=== PATIENT | male | born 1960 | race Caucasian/White ===

== ENCOUNTER 2021-02-10 19:00 | Emergency (ER) | payer BC, SELFPAY ==
[2021-02-10 19:14] VITALS: BP 106/66; PULSE 86; RESP 18; TEMP 37.1; O2SAT 96
--- NOTE | 2021-02-10 19:32 | ED.MALEGU ---
HPI - Male Genitourinary General Chief complaint: Urogenital-Male Stated complaint: UTI Source: patient and RN notes reviewed Limitations: no limitations History of Present Illness HPI Narrative: The patient, previously healthy on no meds, presents with dysuria. Patient states been seen by urology in the past for BPH. Now he has 1/2-week history of urinary dysuria, frequency similar to prior symptoms. No fever, blood, nocturia, low back pain; [id number], late day urinalysis noncontributory. Discussed possible causes of symptoms in view of lab results [obstruction, infection, etc.] and will treat broadly, and advised to go to hospital if not improved. Related Data Allergies Allergy/AdvReac Type Severity Reaction Status Date / Time No Known Allergies Allergy Mild Verified 02/10/21 19:24 Review of Systems Review of Systems: General/Constitutional: No weight loss,fever Eyes: N0: Redness,discharge Ears/Nose/Throat: No: Epistaxis,ear discharge Respiratory: Denies: Hemoptysis Gastrointestinal: No Vomiting, Bleeding-rectal Skin: No Lumps, eruption Neurologic: No Focal Weakness,Sz Hematologic: Denies: Petechiae/Purpura Psychiatric: No: Suicida ideationl All Other Systems: Reviewed and Negative [facility] Past Medical History Medical History Acute eczema Surgical History Surgical History H/O foot surgery Family History Family History Father Cancer Mother Supranuclear palsy Social History Social History Smoking status: Never smoker Comments At time of signature, agree with nursing past medical, surgical, social and family history. There is no relevant family history pertinent to the presenting complaint Exam Narrative: General Appearance: Well appearing, Conjunctiva clear Mouth/Throat: Normal appearing, Normal lips, Supple Respiratory: Airway patent, No respiratory distress Abdomen: Soft, Non-tender, No massess, No organomegaly Musculoskeletal: Full ROM Skin: Warm, Dry Neurological: A&O x3, CN II-X intact Psychiatric: Normal mood, Normal affect Course Vital Signs Vital signs: Vital Signs Temperature 98.8 F 02/10/21 19:14 Pulse Rate 86 02/10/21 19:14 Respiratory Rate 18 02/10/21 19:14 Blood Pressure 106/66 02/10/21 19:14 Pulse Oximetry 96 02/10/21 19:14 Temperature 98.8 F 02/10/21 19:14 Pulse Rate 86 02/10/21 19:14 Respiratory Rate 18 02/10/21 19:14 Blood Pressure 106/66 02/10/21 19:14 Pulse Oximetry 96 02/10/21 19:14 MDM - Male Genitourinary Lab Data Labs: Urine Glucose Negative Reference Range: Negative Urine Bilirubin Negative Reference Range: Negative Urine Ketone Negative Reference Range: Negative Urine Specific [place] 1.020 Reference Range:1.001-1.035 Urine Blood Negative Reference Range: Negative * * Urine pH 7.5 Reference Range: 5.0-9.0 Urine Protein Negative Reference Range: Negative Urine Urobilinogen 0.2 Reference Range: 0.2-1.0 Urine Nitrate Negative Reference Range: Negative Urine Leukocyte Negative
== END 2021-02-10 19:45 | disposition home or self-care (01) ==
PROVIDERS: Emergency Provider Emergency Medicine; PCP Internal Medicine
DX: R30.0 Dysuria (principal)
CPT/HCPCS: 81003; 87086; 99213; G0463

== ENCOUNTER 2021-10-17 10:44 | Emergency (ER) | payer OTHER, SELFPAY ==
[2021-10-17 10:57] VITALS: BP 109/57; PULSE 76; RESP 16; TEMP 36.2; O2SAT 98
== END 2021-10-17 11:46 | disposition left against medical advice (07) ==
PROVIDERS: Emergency Provider Nurse Practitioner Family; PCP Physician Assistant
DX: Z53.21 Procedure and treatment not carried out due to patient leaving prior to being seen by health care provider (principal)
CPT/HCPCS: 99199

== ENCOUNTER 2022-03-30 14:52 | Outpatient (CLI) | payer SELFPAY ==
[2022-03-30 17:44] LABS: Add Urine Microscopic? YES; Appearance Urine Clear (Clear); Bilirubin Urine Negative (Negative); Blood Urine Negative (Negative); Color Urine Yellow (Yellow); Glucose Urine UA Negative (Negative); Ketones Urine Negative (Negative); Leukocyte Esterase Ur Negative LEU/UL (NEGATIVE); Mucus Urine Rare /lpf; Nitrate Urine Negative (Negative); Protein Urine Negative (Negative); RBC Urine 0-2 /hpf (0-2); Specific Grav Ur 1.011 (1.001-1.035); Squamous Epithelial Cell Urine Rare /hpf (Few); Urobilinogen Urine Negative mg/dL (<2.0); WBC Urine 0-3 /hpf (0-3)
== END 2022-03-30 14:53 | disposition home or self-care (01) ==
LOC: ANHLAB 14:54
PROVIDERS: PCP Physician Assistant; Visit Provider Physician Assistant
DX: R30.0 Dysuria (principal)
CPT/HCPCS: 81001; 87086

== ENCOUNTER 2022-06-22 17:58 | Outpatient (CLI) | payer OTHER, SELFPAY ==
--- NOTE | ~2022-06-22 | US_ITS ---
EXAMINATION: US carotid duplex BI DATE: 06/22/2022 18:46 INDICATION: Occlusion and stenosis of bilateral carotid arteries. TECHNIQUE: Grayscale, color Doppler, and pulsed Doppler images of the cervical carotid arteries were obtained. The degree of vessel stenosis is placed in one of the following categories: normal, <50%, 5 0-69%, >=70% but less than near-occlusion, near-occlusion, or total occlusion. Note that percent sten osis relative to normal distal artery lumen diameter is indirectly measured from velocity measurement s as described by Osmel, et al. Radiology 2003; 229:340-346. COMPARISON: None. FINDINGS: RIGHT: The right common carotid artery (CCA) peak systolic velocity (PSV) is 94 cm/s. The right internal car otid artery (ICA) PSV is 102 cm/s. The right ICA end-diastolic velocity (EDV) is 46 cm/s. The right I CA/CCA PSV ratio is 1.1. Grayscale and color Doppler images yield an estimate of <50% diameter reduct ion from plaque in the ICA. There is antegrade flow in the right vertebral artery. LEFT: The left CCA PSV is 101 cm/s. The left ICA PSV is 100 cm/s. The left ICA EDV is 41 cm/s. The left ICA /CCA PSV ratio is 1.0. Grayscale and color Doppler images yield an estimate of <50% diameter reductio n from plaque in the ICA. There is antegrade flow in the left vertebral artery. IMPRESSION: 1. <50% stenosis in the right internal carotid artery. 2. <50% stenosis in the left internal carotid artery. Reviewed, dictated and finalized at location A. [facility]
== END 2022-06-22 17:59 | disposition home or self-care (01) ==
PROVIDERS: PCP Physician Assistant; Visit Provider Physician Assistant
DX: I65.23 Occlusion and stenosis of bilateral carotid arteries (principal)
CPT/HCPCS: 93880

== ENCOUNTER 2022-06-24 00:42 | Day surgery (SDC) | payer OTHER, SELFPAY ==
[2022-06-14 11:33] VITALS: BMI 30.4
--- NOTE | 2022-06-14 11:37 | PC.NURSE ---
Report to the Outpatient Waiting Room, entrance under the green pavilion located off [facility], at time 1230 on date 06/24/22. Planned Procedure Time: 1430. Time changes happen often and if your time is changed the preop area will call you the afternoon before. - You and your visitor will be asked to self-screen and do not enter if you have any COVID symptoms. - Only one visitor is requested with a max of two and NO children visitors are allowed at this time. - The patient visitor may be requested to leave or wait in car when not with patient due to distancing restrictions. - A mask is REQUIRED within the hospital. Patients may have clear liquids (water, carbonated beverages, clear teas, apple juice) until 3 hours prior to surgery with a maximum of 20 ounces. - No food from midnight until time of surgery Take the following medications with a SIP of water the morning of surgery: NONE Medications to discontinue per physician: N/A Date to take last dose: N/A Please no make-up, nail bulgarian, hairspray, perfume, deodorant, or body powder the day of surgery. No jewelry (including any body piercings) or valuables the day of surgery, leave them at home. Please take a shower or bath the night before, or the morning of, surgery with an antibacterial soap. Wear comfortable, loose fitting clothing. - Jewelry must be removed prior to entering the operating room. Rings and piercings that are not removed may be cut off. - The hospital will not accept responsibility for valuables. - Please leave all valuables, including medications, at home the day of surgery. If you are going home after surgery, a licensed fleet driver must drive you home. - NO public transportation without another adult if you receive anesthesia. - We recommend that an adult stay with you for 24 hours following discharge. - We also recommend that you do not drive, make important decision, drink alcoholic beverages, or take any drugs that were not prescribed by your health care provider for at least 24 hours after your discharge time. Follow any additional instructions given to you from your surgeon. If you or anyone in your household have experienced Covid symptoms in the past week, please notify your surgeon or the nurse liaison at the phone number below for possible testing. Telephone instructions given to PT - SHOLA FRANKLIN and asked if any additional questions and then verbalized understanding. Patient advised to call surgeon office or pre surgery nurse liaison [phone] if any additional questions.
--- NOTE | 2022-06-23 12:13 | WPDANESEPPF ---
Anes - Initial Pre Proc Eval Procedure: Operation Date: 06/24/22 14:30 Proposed Procedures p Excision of Skin Cyst and Lipoma on Back - Jonathan Jurado MD Date/Time: 06/23/22 12:13 Surgeon: Jonathan Jurado MD Pre Op Diagnosis: skin cyst 3x2cm &4x2cm subcutaneous mass on back Patient Data Age: 61 Gender: M Height: 1.73 m Weight: 90.72 kg Allergies Allergy/AdvReac Type Severity Reaction Status Date / Time No Known Allergies Allergy Mild Verified 06/14/22 16:05 Home Medications Medication Instructions Recorded Confirmed Type tamsulosin 0.4 mg capsule (Flomax) 0.4 mg PO DAILY #90 caps 03/31/22 06/24/22 Rx ibuprofen 600 mg tablet 600 mg PO Q6H PRN pain #14 tabs 06/24/22 Rx tramadol 50 mg tablet 50 mg PO Q6H PRN pain #10 tabs 06/24/22 Rx Patient hx anesthesia problems: none Family hx anesthesia problems: none Results Review: All pre-operative results and documents have been reviewed as part of the pre-operative evaluation. [facility] Past Medical History Medical History Acute eczema BPH (benign prostatic hyperplasia) Surgical History Surgical History H/O foot surgery Family History Family History Father Cancer Mother Supranuclear palsy Social History Social History Smoking status: Never smoker Alcohol intake: never Substance use: never Substance use type: does not use Lack of Transportation: No Lack of Food: Never True Current Housing: I Have Housing Concerned About Future Housing: No Difficulty Paying Gas/Electric Bills: No Difficulty Paying for Meds: No Currently Unemployed: No Education: Bachelor's Degree Difficulty w/ Childcare or Family Care: No Living arrangements: with family Occupation/Education: occupation Additional occupation/education comments: Sales Spiritual care concerns: No Anes - Eval Final PreProcedure Day of Procedure 06/23/22 12:13 Patient weight: obese Heart: regular rate and rhythm Lungs: clear to auscultation Airway: Mallampati scale class II Neurological: alert and oriented Last oral intake: >/= 8 hours ASA classification: II Emergent: no Anesthetic plan: proceed Anesthesia type and monitoring: general GIVS and standard monitoring Results Review: All pre-operative results and documents have been reviewed as part of the pre-operative evaluation. Informed Consent: The patient's anesthetic plan and its attendant risks and benefits were discussed with the patient/family/POA. Questions were solicited and answers provided to the satisfaction of the patient/family/POA.
--- NOTE | 2022-06-23 16:09 | PM.SD2 ---
Same Day Admit/Disch: HPI History of Present Illness Chief complaint: skin cyst 3x2cm &4x2cm subcutaneous mass on back Narrative: Vicente Peterson is a 61 year old male who has had a couple of nodules on the back for a long time. In the last year these seem to be getting larger and are painful when he leans back in a chair or is leaning back in a car. He was seen in the office and found to have a lipoma in the left lower back and a skin cyst above this lesion but also on the back and more in the midline. He is taken to surgery now for excision of both lesions under anesthesia. [facility] Past Medical History Medical History Acute eczema BPH (benign prostatic hyperplasia) Surgical History Surgical History H/O foot surgery Family History Family History Father Cancer Mother Supranuclear palsy Social History Social History Smoking status: Never smoker Alcohol intake: never Substance use: never Substance use type: does not use Lack of Transportation: No Lack of Food: Never True Current Housing: I Have Housing Concerned About Future Housing: No Difficulty Paying Gas/Electric Bills: No Difficulty Paying for Meds: No Currently Unemployed: No Education: Bachelor's Degree Difficulty w/ Childcare or Family Care: No Living arrangements: with family Additional occupation/education comments: Sales Spiritual care concerns: No Same Day Admit/Disch: Med Pre-admit Medications Home Medications Medication Instructions Recorded Confirmed Type tamsulosin 0.4 mg capsule (Flomax) 0.4 mg PO DAILY #90 caps 03/31/22 06/24/22 Rx ibuprofen 600 mg tablet 600 mg PO Q6H PRN pain #14 tabs 06/24/22 Rx tramadol 50 mg tablet 50 mg PO Q6H PRN pain #10 tabs 06/24/22 Rx Exam Const: General: comfortable, no acute distress, alert and awake HENMT: Head: normocephalic and atraumatic Mouth: Yes Normal oral and palatal mucosa present Eyes: Conjunctivae: conjunctivae normal Pupils: Equal, round and reactive pupils present EOM: EOMs intact bilaterally Neck: Neck: normal visual inspection, no lymphadenopathy and nontender Resp: Effort & Inspection: normal respiratory effort Auscultation: clear to auscultation bilaterally Cardio: Rate: regular rate Rhythm: regular rhythm Heart sounds: no gallops, no murmurs and no rubs GI: Inspection: non-distended GI Palp: Yes Soft to palpation, No Tenderness to palpation present (GI), No Hepatomegaly present and No Splenomegaly present Skin: Lesions: lesion noted (4 x 2 cm lipoma left lower back, 3 cm skin cyst, midline, and more cephalad) Rashes: no rashes Wounds: no wounds Neuro: General: no focal motor deficits and CN's II-XI intact bilaterally Cranial nerves: Yes Equal, round and reactive pupils present, Yes Bilaterally intact EOM present, Yes facial symmetry and Yes Midline tongue present Speech: normal speech Motor exam (neuro): 5/5 motor strength present throughout and Motor abnormalities not present Extrem: General: no clubbing, cyanosis or edema and edema Psych: Affect: normal affect Thought process: Normal thought process present Insight: Good insight present (Psych) DS: Summary Time Spent with Patient Time attestation: Total time spent providing and/or coordinating discharge services: DS: Admitting Diagnosis Discharge Date 06/24/2022 Admitting Diagnosis Skin lesions of the back-- 4 x 2 cm lipoma in the left lower back will be excised. Skin cyst 3 x 2 cm more in the midline and above the lipoma will also be excised. Both are symptomatic. The procedure, the risks, the benefits, were discussed. The usual recovery was discussed. All questions were answered. He agrees to go ahead. DS: Discharge Diagnosis Dischar
[2022-06-24 12:42] VITALS: BP 104/64; PULSE 81; RESP 20; TEMP 36.6; O2SAT 94
--- NOTE | 2022-06-24 13:08 | WPDHPUPDATE1 ---
History and Physical Update Update Date/Time: 06/24/22 13:08 History and Physical has been reviewed, including an updated exam of the patient. There are NO changes in the patient's condition. Risks, benefits, and alternatives have been discussed and questions answered. Patient agrees to proceed with procedure.
[2022-06-24] MEDS: LACTATED RINGERS 1,000 ML 30 ML IV CONT (13:10)
--- NOTE | 2022-06-24 13:11 | WPDANESEPPF ---
Anes - Initial Pre Proc Eval Procedure: Operation Date: 06/24/22 14:30 Proposed Procedures p Excision of Skin Cyst and Lipoma on Back - Jonathan Jurado MD Date/Time: 06/24/22 13:11 Surgeon: Jonathan Jurado MD Pre Op Diagnosis: skin cyst 3x2cm &4x2cm subcutaneous mass on back Patient Data Age: 61 Gender: M Height: 1.73 m Weight: 90.72 kg Allergies Allergy/AdvReac Type Severity Reaction Status Date / Time No Known Allergies Allergy Mild Verified 06/14/22 16:05 Home Medications Medication Instructions Recorded Confirmed Type tamsulosin 0.4 mg capsule (Flomax) 0.4 mg PO DAILY #90 caps 03/31/22 06/24/22 Rx Patient hx anesthesia problems: none Family hx anesthesia problems: none Results Review: All pre-operative results and documents have been reviewed as part of the pre-operative evaluation. [facility] Past Medical History Medical History Acute eczema BPH (benign prostatic hyperplasia) Surgical History Surgical History H/O foot surgery Family History Family History Father Cancer Mother Supranuclear palsy Social History Social History Smoking status: Never smoker Alcohol intake: never Substance use: never Substance use type: does not use Lack of Transportation: No Lack of Food: Never True Current Housing: I Have Housing Concerned About Future Housing: No Difficulty Paying Gas/Electric Bills: No Difficulty Paying for Meds: No Currently Unemployed: No Education: Bachelor's Degree Difficulty w/ Childcare or Family Care: No Living arrangements: with family Additional occupation/education comments: Sales Spiritual care concerns: No Anes - Eval Final PreProcedure Day of Procedure 06/24/22 13:11 Patient weight: overweight Heart: regular rate and rhythm Lungs: clear to auscultation Airway: Mallampati scale class II Neurological: alert and oriented Last oral intake: >/= 8 hours ASA classification: II Emergent: no Anesthetic plan: proceed Anesthesia type and monitoring: general GIVS and standard monitoring Results Review: All pre-operative results and documents have been reviewed as part of the pre-operative evaluation. Informed Consent: The patient's anesthetic plan and its attendant risks and benefits were discussed with the patient/family/POA. Questions were solicited and answers provided to the satisfaction of the patient/family/POA.
[2022-06-24] MEDS: ceFAZolin 2 GM/D5W 50 ML 2 GM/50 ML BAG IVPB (14:05)
[2022-06-24] MEDS: BUPIVACAINE/EPINEPHRINE 0.5% 30 ML VIAL 60 ML INFILTRATE (14:25)
[2022-06-24 15:19] VITALS: BP 99/52; PULSE 70; RESP 14; O2SAT 97
[2022-06-24 15:45] VITALS: BP 127/55; PULSE 67
--- NOTE | 2022-06-24 15:48 | W.PM.PROC2 ---
Procedure Note - Detailed Date of Procedure 06/24/22 Pre-op Diagnosis Lipoma left lower back, skin cyst midthoracic back Post-op Diagnosis Same Procedure Performed Excision 3.5 cm skin cyst of the back with no margin, 9 cm layered closure. Excision 4.2 cm lipoma left lower back. Surgeon Jonathan Jurado MD Health Specialist Pam BAUTISTA Anesthesia MAC and Local (0.5% Marcaine with epinephrine) Indications Patient has noticed some nodules on his back for quite some time. Within the last year these seem to be bigger and are painful when he leans back in a chair or leans back to drive a car. He was seen in the office and noted to have a skin cyst in the middle of the back and a lipoma in the left lower back. He is taken to surgery now for excision of each of these lesions. Findings Consistent with preoperative diagnosis. 3.5 cm skin cyst of the middle of the back and 4.2 cm lipoma of the left lower back. Description of Procedure The patient was checked in the preoperative holding area. The area of each of the lesions of the back were marked on the skin. He was then taken to the operating room and placed in right lateral decubitus position. The surgical area was prepped and draped. Anesthesia was introduced. Local anesthetic was infiltrated over the area of the anticipated incisions. Incision was made over the lipoma in the left lower back 1st. Dissection was carried down through the skin and subcutaneous. Cautery was used for hemostasis. Just below the subcutaneous fascia the lipoma was evident. The lipoma was dissected free from the surrounding tissues using a combination of blunt and sharp dissection. Once excised, it was measured and was 4.2 cm in greatest dimension. It was sent to pathology in formalin. The wound was made hemostatic with the cautery. The wound was then closed with 3-0 Vicryl subcutaneous interrupted suture followed by 4-0 Vicryl subcuticular interrupted suture. Finally a running 4-0 Monocryl skin suture was placed. We then turned our attention to the mid back skin cyst. A transversely oriented ellipse had been drawn on the skin around the cyst. Incision was made and dissection was carried down through the skin into the subcutaneous. We excised the ellipse and then carefully dissected around the area of the cyst so as not to disrupt the cyst wall. Cautery was used for hemostasis. The cyst and the overlying skin was completely excised. The cyst was measured and was 3.5 cm in greatest diameter. The defect to be closed measured 9 cm. We used cautery to achieve hemostasis of the wound. I then undermined the subcutaneous on each side of the wound. 3-0 Vicryl interrupted suture were used to close the deeper layers of this wound. 4-0 Vicryl subcutaneous sutures in interrupted fashion were used to close the superficial subcutaneous. The skin was closed with a running 4-0 Monocryl skin suture. Both wounds were dressed with Exofin surgical adhesive. The patient was awakened and taken to recovery in good condition. Sponge and needle counts were correct x2. Estimated Blood Loss -10 Drains No Packing No Pathology Yes (Subcutaneous mass left lower back, skin cyst mid thoracic back) Complications No immediate complications Condition Stable Disposition Same day [facility] Billing Surgery - Charge Forward: Surgery Billing (Excision 3.5 cm skin cyst of the back with no margin, 9 cm layered closure. Excision 4.2 cm lipoma of the back.)
[2022-06-24 16:15] VITALS: BP 110/70; PULSE 67
== END 2022-06-24 16:23 | disposition home or self-care (01) ==
PROVIDERS: PCP Physician Assistant; Visit Provider Surgery
PROC: (CPT 21931; principal; 2022-06-24 14:30)
DX: D17.1 Benign lipomatous neoplasm of skin and subcutaneous tissue of trunk (principal); L72.0 Epidermal cyst; N40.0 Benign prostatic hyperplasia without lower urinary tract symptoms; E66.9 Obesity, unspecified; Z68.30 Body mass index [BMI] 30.0-30.9, adult
CPT/HCPCS: 21931; 11404; 12034; 88304; 88305; J0690; J2250; J2370; J2704; J3010; J7120

== ENCOUNTER 2022-08-30 01:25 | Day surgery (SDC) | payer SELFPAY ==
[2022-08-18 14:52] VITALS: BMI 30.4
--- NOTE | 2022-08-27 14:05 | PM.HPGS ---
History of Present Illness History of Present Illness Consent: Risks, benefits, and alternatives have been discussed and questions answered. Patient agrees to proceed with procedure. Chief complaint: peptic ulcer, neoplasm screening Narrative: Vicente Peterson is a 61 year old male Was referred for investigation of left upper quadrant pain. The pain began abruptly about 2 month ago. He notices the pain is worse when leaning forward such as sitting at a desk. It often feels like a hunger pain and is briefly better after some meals. However that he feels extremely bloated. He does not burp much for passed much gas. He has not lost weight. He also was due for colon cancer screening. Review of Systems Review of Systems: All systems reviewed & are unremarkable except as noted in HPI and below PMFSH Past Medical History Medical History Acute eczema BPH (benign prostatic hyperplasia) Surgical History Surgical History H/O foot surgery S/P excision of lipoma excision 3.5 cm skin cyst of the back with no margin, 9 cm layered closure. Excision 4.2 lipoma left lower back 06/24/22 Family History Family History Father Cancer Mother Supranuclear palsy Social History Social History Smoking status: Never smoker Alcohol intake: never Alcohol use details: seldom Substance use: never Substance use type: does not use Lack of Transportation: No Lack of Food: Never True Current Housing: I Have Housing Concerned About Future Housing: No Difficulty Paying Gas/Electric Bills: No Difficulty Paying for Meds: No Currently Unemployed: No Education: Bachelor's Degree Difficulty w/ Childcare or Family Care: No Living arrangements: with family Occupation/Education: occupation Additional occupation/education comments: Sales Spiritual care concerns: No Meds Home Medications and Allergies Home Medications Medication Instructions Recorded Confirmed Type tamsulosin 0.4 mg capsule (Flomax) 0.4 mg PO DAILY #90 caps 03/31/22 08/30/22 Rx pantoprazole 40 mg tablet,delayed 40 mg PO QAM #90 tabs 08/27/22 08/30/22 Rx release Allergies Allergy/AdvReac Type Severity Reaction Status Date / Time No Known Allergies Allergy Mild Verified 08/30/22 08:18 Exam Const: General: alert Orientation/consciousness: patient oriented x3 Resp: Auscultation: clear to auscultation bilaterally Cardio: Rhythm: regular rhythm GI: GI Palp: Yes Soft to palpation and No Tenderness to palpation present (GI) Neuro: General: patient oriented x3 Assessment and Plan Assessment and plan (1) Left upper quadrant pain: Code(s): R10.12 - Left upper quadrant pain Status: Acute Assessment and Plan: EGD with possible biopsy or dilatation or cautery. (2) Screening for colorectal cancer: Code(s): Z12.11 - Encounter for screening for malignant neoplasm of colon; Z12.12 - Encounter for screening for malignant neoplasm of rectum Status: Acute Assessment and Plan: Colonoscopy with possible biopsy or polypectomy or cautery or injection of substances.
[2022-08-30 08:34] VITALS: BP 119/75; PULSE 89; RESP 16; TEMP 36.1; O2SAT 97
[2022-08-30] MEDS: LACTATED RINGERS 1,000 ML 150 ML IV CONT (08:49)
--- NOTE | 2022-08-30 08:55 | WPDANESEPPF ---
Anes - Initial Pre Proc Eval Procedure: Operation Date: 08/30/22 09:30 Proposed Procedures p Esophagogastroduodenoscopy & Screening Colonoscopy - Mac Garcia MD Date/Time: 08/30/22 08:55 Surgeon: Mac Garcia MD Pre Op Diagnosis: peptic ulcer, neoplasm screening Patient Data Age: 61 Gender: M Height: 1.73 m Weight: 90.5 kg Last Vital Signs Temp 36.1 C L 08/30/22 08:34 Pulse 89 08/30/22 08:34 Resp 16 08/30/22 08:34 BP 119/75 08/30/22 08:34 Pulse Ox 97 08/30/22 08:34 O2 Del Method Room Air 08/30/22 08:34 Allergies Allergy/AdvReac Type Severity Reaction Status Date / Time No Known Allergies Allergy Mild Verified 08/30/22 08:18 Home Medications Medication Instructions Recorded Confirmed Type tamsulosin 0.4 mg capsule (Flomax) 0.4 mg PO DAILY #90 caps 03/31/22 08/30/22 Rx pantoprazole 40 mg tablet,delayed 40 mg PO QAM #90 tabs 08/27/22 08/30/22 Rx release Patient hx anesthesia problems: none Family hx anesthesia problems: none Results Review: All pre-operative results and documents have been reviewed as part of the pre-operative evaluation. [facility] Past Medical History Medical History Acute eczema BPH (benign prostatic hyperplasia) Surgical History Surgical History H/O foot surgery S/P excision of lipoma excision 3.5 cm skin cyst of the back with no margin, 9 cm layered closure. Excision 4.2 lipoma left lower back 06/24/22 Family History Family History Father Cancer Mother Supranuclear palsy Social History Social History Smoking status: Never smoker Alcohol intake: never Alcohol use details: seldom Substance use: never Substance use type: does not use Lack of Transportation: No Lack of Food: Never True Current Housing: I Have Housing Concerned About Future Housing: No Difficulty Paying Gas/Electric Bills: No Difficulty Paying for Meds: No Currently Unemployed: No Education: Bachelor's Degree Difficulty w/ Childcare or Family Care: No Living arrangements: with family Occupation/Education: occupation Additional occupation/education comments: Sales Spiritual care concerns: No Anes - Eval Final PreProcedure Day of Procedure 08/30/22 08:55 Patient weight: overweight Heart: regular rate and rhythm Lungs: clear to auscultation Airway: Mallampati scale class II Neurological: alert and oriented Last oral intake: >/= 8 hours ASA classification: II Emergent: no Anesthetic plan: proceed Anesthesia type and monitoring: general GIVS and standard monitoring Results Review: All pre-operative results and documents have been reviewed as part of the pre-operative evaluation. Informed Consent: The patient's anesthetic plan and its attendant risks and benefits were discussed with the patient/family/POA. Questions were solicited and answers provided to the satisfaction of the patient/family/POA.
--- NOTE | 2022-08-30 09:37 | SUR.OPER ---
EGD start 936 end 938, Colonoscopy start 948.
[2022-08-30] MEDS: SIMETHICONE ORAL SUSPENSION 20 MG/0.3 ML 30 ML BOTTLE 0.6 ML IRRIGATION (10:02)
[2022-08-30 10:08] VITALS: BP 114/68; PULSE 63; RESP 19; O2SAT 97
[2022-08-30 10:18] VITALS: BP 105/74; PULSE 65; RESP 19; O2SAT 97
[2022-08-30 10:28] VITALS: BP 117/81; PULSE 63; RESP 19; O2SAT 97
== END 2022-08-30 10:42 | disposition home or self-care (01) ==
PROVIDERS: PCP Physician Assistant; Visit Provider Internal Medicine Gastroenterology
PROC: 0DJ08ZZ Inspection of Upper Intestinal Tract, Via Natural or Artificial Opening Endoscopic (ICD-10-PCS; CPT 43235; principal; 2022-08-30 09:30)
DX: Z12.11 Encounter for screening for malignant neoplasm of colon (principal); D12.5 Benign neoplasm of sigmoid colon; K57.30 Diverticulosis of large intestine without perforation or abscess without bleeding; K21.9 Gastro-esophageal reflux disease without esophagitis; N40.0 Benign prostatic hyperplasia without lower urinary tract symptoms
CPT/HCPCS: 45385; 43239; 87081; 88305; J2704; J7120

== ENCOUNTER → 2022-09-13 14:33 | Outpatient (CLI) | payer OTHER, SELFPAY ==
--- NOTE | ~2022-09-13 | CT_ITS ---
CT of the Abdomen and Pelvis: Indication: Abdominal pain Technique: 2.5 mm axial scans were obtained through the abdomen and pelvis following intravenous adm inistration of 100 cc of Omnipaque 350. Dose reduction technique was used on this scan by utilizing a utomated exposure control and iterative reconstruction technique. The dose-length product (DLP) was 9 16.95 mGy-cm. Findings: Scans through the lung bases are unremarkable. There are numerous hypodense, noncystic hepatic masses scattered throughout the liver, largest measur ing 1.5 cm in diameter, consistent with metastatic disease. Small calcified gallstone present. There is a 1 cm left adrenal nodule. There is a 2.2 x 1.7 cm irregular hypodense partially exophytic mass a t the pancreatic tail. The spleen, right adrenal gland, and kidneys are essentially unremarkable. No evidence of aortic aneurysm. No lymphadenopathy. No bowel obstruction or bowel wall thickening. There is no evidence to suggest acute appendicitis. Images through the pelvis were performed. Urinary bladder unremarkable. Prostate gland and seminal ve sicles are unremarkable. No ascites. Impression: 2.2 x 1.7 cm irregular, hypodense pancreatic tail mass, highly suspicious for pancreatic adenocarcino ma. Numerous hepatic metastases, measuring up to 1.5 cm in maximum diameter. 1 cm left adrenal nodule, suspicious for metastasis given the above findings. Cholelithiasis. Reviewed, dictated and finalized at location . Impression: 2.2 x 1.7 cm irregular, hypodense pancreatic tail mass, highly suspicious for p ancreatic adenocarcinoma. Numerous hepatic metastases, measuring up to 1.5 cm in maximum diameter. 1 cm left adrenal nodule, suspicious for metastasis given the above findings. Cholelithiasis.
[2022-09-13 14:53] LABS: Estimated Glomerular Filt Rate > 60
== END ==
PROVIDERS: PCP Internal Medicine; Visit Provider Physician Assistant
DX: R10.9 Unspecified abdominal pain (principal); G89.29 Other chronic pain; D35.02 Benign neoplasm of left adrenal gland; K80.20 Calculus of gallbladder without cholecystitis without obstruction
CPT/HCPCS: 74177; Q9967

== ENCOUNTER 2022-10-01 19:41 | Emergency (ER) | payer OTHER, SELFPAY ==
[2022-10-01] VITALS (7 sets, daily range): BP systolic 87–117; BP diastolic 49–64; PULSE 81–106; RESP 18–28; TEMP 36.8; O2SAT 90–94
--- NOTE | ~2022-10-01 | CT_ITS ---
EXAMINATION: CTA chest PE abdomen pel DATE: 10/01/2022 21:54 INDICATION: Chest pain. TECHNIQUE: Computed tomography angiography (CTA) of the chest was performed with 100 mL Omnipaque-350 intravenous contrast timed to evaluate the pulmonary arteries. Coronal maximum intensity projection 3D-reconstructions were created by the technologist. Computed tomography (CT) of the abdomen and pelv is was performed with intravenous contrast. Automated exposure control and iterative reconstruction t echnique were employed. The dose-length product was 1339.61 mGy-cm. COMPARISON: CT abdomen and pelvis 09/13/2022, 06/09/12 FINDINGS: CTA chest: There is mild dependent atelectasis bilaterally. No pleural effusion. The heart size is no rmal. No pericardial effusion. There are acute pulmonary emboli in right middle lobe, right upper lob e, and right lower lobe. There is moderate thoracic spondylosis. CT abdomen and pelvis: There are greater than 20 masses in the liver measuring up to 2.1 cm, consiste nt with metastatic disease. There is a gallstone in the gallbladder, which is normal in size. There i s a 2.9 x 2.1 cm hypodense mass in the tail of the pancreas, consistent with primary adenocarcinoma. The spleen and right adrenal gland are normal. There is a chronic 1.5 cm mass in left adrenal gland, likely an adenoma. Right kidney is normal. There are cysts in left kidney measuring up to 6.4 cm. The re is an umbilical hernia containing fat. There are bilateral inguinal hernias containing fat. There is diverticulosis of the colon without evidence of diverticulitis. The appendix is normal. There are no dilated loops of bowel. There are no pathologically enlarged lymph nodes. There is no free intrape ritoneal fluid. There is severe lower lumbar spondylosis. IMPRESSION: 1. Acute right-sided pulmonary emboli. 2. Pancreatic mass, consistent with primary adenocarcinoma. 3. Liver masses, consistent metastatic disease. Reviewed, dictated and finalized at location E.
--- NOTE | 2022-10-01 20:18 | ED.GENADULT ---
HPI - General Adult General Chief complaint: Unspecified Stated complaint: Pain in calves, DVT in right leg, biopsy Time Seen by Provider: 10/01/22 20:28 Related Data Allergies Allergy/AdvReac Type Severity Reaction Status Date / Time No Known Allergies Allergy Mild Verified 10/01/22 19:42 [facility] Past Medical History Medical History (Updated 10/01/22 @ 22:57 by Jose Houston MD) Acute eczema BPH (benign prostatic hyperplasia) Pancreatic cancer Right leg DVT Surgical History Surgical History (Updated 10/01/22 @ 22:54 by Jose Houston MD) H/O foot surgery History of liver biopsy S/P excision of lipoma excision 3.5 cm skin cyst of the back with no margin, 9 cm layered closure. Excision 4.2 lipoma left lower back 06/24/22 Family History Family History Father Cancer Mother Supranuclear palsy Social History Social History Smoking status: Never smoker Alcohol intake: never Alcohol use details: seldom Substance use: never Substance use type: does not use Lack of Transportation: No Lack of Food: Never True Current Housing: I Have Housing Concerned About Future Housing: No Difficulty Paying Gas/Electric Bills: No Difficulty Paying for Meds: No Currently Unemployed: No Education: Bachelor's Degree Difficulty w/ Childcare or Family Care: No Living arrangements: with family Occupation/Education: occupation Additional occupation/education comments: Sales Spiritual care concerns: No Course Vital Signs Vital signs: Vital Signs Temperature 98.3 F 10/01/22 19:51 Pulse Rate 106 H 10/01/22 19:51 Respiratory Rate 20 10/01/22 19:51 Blood Pressure 117/56 L 10/01/22 19:51 Pulse Oximetry 94 10/01/22 19:51 Oxygen Delivery Nasal Cannula 10/01/22 19:51 Oxygen Flow Rate 2 10/01/22 19:51 Temperature 98.3 F 10/01/22 19:51 Pulse Rate 68 10/02/22 00:45 Respiratory Rate 16 10/02/22 00:45 Blood Pressure 108/67 10/02/22 00:45 Pulse Oximetry 96 10/02/22 00:45 Oxygen Delivery Nasal Cannula 10/01/22 19:51 Oxygen Flow Rate 2 10/01/22 19:51 Medical Decision Making Vital Signs Vital Signs: Vital Signs Temperature 98.3 F 10/01/22 19:51 Pulse Rate 106 H 10/01/22 19:51 Respiratory Rate 20 10/01/22 19:51 Blood Pressure 117/56 L 10/01/22 19:51 Pulse Oximetry 94 10/01/22 19:51 Oxygen Delivery Nasal Cannula 10/01/22 19:51 Oxygen Flow Rate 2 10/01/22 19:51 Temperature 98.3 F 10/01/22 19:51 Pulse Rate 68 10/02/22 00:45 Respiratory Rate 16 10/02/22 00:45 Blood Pressure 108/67 10/02/22 00:45 Pulse Oximetry 96 10/02/22 00:45 Oxygen Delivery Nasal Cannula 10/01/22 19:51 Oxygen Flow Rate 2 10/01/22 19:51 Lab Data 10/01/22 21:07 10/01/22 21:09 Labs: Lab Results 10/01/22 10/01/22 Range/Units 21:07 21:09 WBC 12.9 H (4.5-10.0) K/mm3 RBC 4.42 L (4.6-6.20) M/mm3 Hgb 13.2 L (14.0-18.0) g/dL Hct 39.0 L (42.0-52.0) % MCV 88.2 (80-100) fl MCH 29.9 (26-34) pg MCHC 33.8 (32-36) g/dl RDW 13.1 (11.5-14.5) % Plt Count 204 (150-375) k/mm3 MPV 9.3 (7.4-10.4) fl Immature Gran % (Auto) 0.5 (0-0.5) % Neut % (Auto) 81.7 H (45.5-73.1) % Lymph % (Auto) 7.8 L (18.3-44.2) % [place] % (Auto) 9.0 H (2.6-8.5) % Eos % (Auto) 0.2 (0-4.4) % Baso % (Auto) 0.8 (0.2-1.2) % Lymph # (Auto) 1.01 (0.9-3.2) K/mm3 [place] # (Auto) 1.2 H (0.1-0.6) K/mm3 Eos # (Auto) 0.0 (0-0.3) K/mm3 Baso # (Auto) 0.1 (0.0-0.1) K/mm3 Abs Immat Gran (auto) 0.06 H (0.00-0.031) K/mm3 Absolute Neuts (auto) 10.5 H (1.3-6.7) K/mm3 Absolute Nucleated RBC 0.0 (0.0-0.012) K/mm3 Nucleated RBC % 0.0 (0.0-0.2) % Sodium 135 L (137-145) mmol/L Potassium 3.8 (3.4-5.0) mmol/L Chloride 102 (98
--- NOTE | 2022-10-01 20:36 | ECG_ITS ---
Measurements Intervals [place] Rate: 92 P: 40 [place]: 165 QRS: -17 QRSD: 106 T: 35 QT: 329 QTc: 409 Interpretive Statements SINUS RHYTHM LOW QRS VOLTAGE IN PRECORDIAL LEADS [QRS DEFLECTION < 1.0 mV IN CHEST LEADS] INFERIOR MYOCARDIAL INFARCTION [40+ ms Q WAVE AND/OR ST/T ABNORMALITY IN II/aVF], PROBABLY OLD NO PREVIOUS ECG AVAILABLE FOR COMPARISON Electronically Signed On 10-02-2022 12:14:34 CDT by Eron Beck M.D.
[2022-10-01] MEDS: SODIUM CHLORIDE 0.9% IV 1,000 ML 999 ML IV CONT (21:02)
[2022-10-01 21:21] LABS: Basophils Absolute Auto 0.1 K/mm3 (0.0-0.1); Basophils Percent Auto 0.8 % (0.2-1.2); Eosinophils Percent Auto 0.2 % (0-4.4); Hemoglobin 13.2 g/dL (14.0-18.0); Immature Granulocyte Absolute 0.06 K/mm3 (0.00-0.031); Immature Granulocyte Percent A 0.5 % (0-0.5); Lymphocytes Absolute Auto 1.01 K/mm3 (0.9-3.2); Lymphocytes Percent Auto 7.8 % (18.3-44.2); Mean Corpuscular HGB Conc 33.8 g/dl (32-36); Mean Corpuscular Hemoglobin 29.9 pg (26-34); Mean Corpuscular Volume 88.2 fl (80-100); Mean Platelet Volume 9.3 fl (7.4-10.4); Monocytes Absolute Auto 1.2 K/mm3 (0.1-0.6); Neutrophils Absolute Auto 10.5 K/mm3 (1.3-6.7); Neutrophils Percent Auto 81.7 % (45.5-73.1); Platelet Count Result 204 k/mm3 (150-375); Red Blood Count 4.42 M/mm3 (4.6-6.20); Red Cell Distribution Width 13.1 % (11.5-14.5); White Blood Count 12.9 K/mm3 (4.5-10.0)
[2022-10-01 21:27] LABS: Lactic Acid Reflex 1.2 mmol/L (0.7-2.0)
[2022-10-01 21:32] LABS: Alanine Aminotransferase 87 U/L (6-50); Alkaline Phosphatase 159 U/L (38-126); Anion Gap 3 mmol/L (8-16); Aspartate Amino Transferase 52 U/L (17-59); Bilirubin,Total 1.1 mg/dL (0.2-1.3); Blood Urea Nitrogen 20 mg/dL (9-20); Calcium 8.6 mg/dL (8.4-10.2); Carbon Dioxide 30 mmol/L (22-30); Chloride 102 mmol/L (98-107); Estimated CRCL calculation 84 ml/min; Estimated Glomerular Filt Rate > 60; Glucose 126 mg/dL (65-110); Lipase 34 U/L (23-300); Potassium 3.8 mmol/L (3.4-5.0); Sodium 135 mmol/L (137-145)
[2022-10-01 21:44] LABS: Troponin I < 0.012 ng/mL (0.000-0.034)
--- NOTE | 2022-10-01 22:52 | ED.GENADULT ---
HPI - General Adult General Chief complaint: Unspecified Stated complaint: Pain in calves, DVT in right leg, biopsy Time Seen by Provider: 10/01/22 20:28 History of Present Illness HPI narrative: This is a 62-year-old male, with history of pancreatic mass concerning for cancer, who presents the emergency department complaining of epigastric abdominal pain and fever. The patient states he was seen at [facility] today for right leg swelling, was diagnosed with DVT. He also underwent liver biopsy with interventional radiology. He was advised that he should not start anticoagulants until 48 hours after his procedure. He states the pain is sharp, initially rated 7/10 now 6/10 does not radiate and is aggravated with deep breathing. He also noted a fever measuring 101 at home prior to arrival. He has no other complaints Related Data Allergies Allergy/AdvReac Type Severity Reaction Status Date / Time No Known Allergies Allergy Mild Verified 10/01/22 19:42 Review of Systems Review of Systems: CONSTITUTIONAL: Fever denies chills, or sweats. EYES: Denies visual changes, redness, or discharge. ENT: Denies rhinorrhea, congestion, sore throat, or otalgia. CARDIOVASCULAR: Denies chest pain, palpitations, or edema. RESPIRATORY: Denies cough or dyspnea. GASTROINTESTINAL: Epigastric abdominal pain denies nausea, vomiting, or diarrhea. GENITOURINARY: Denies dysuria or hematuria. SKIN: Denies rash or itching. MUSCULOSKELETAL: Denies back pain, joint pain, or myalgia. NEUROLOGIC: Denies headache, numbness, dizziness, or weakness. PSYCHIATRIC: Denies anxiety or depression. [facility] Past Medical History Medical History (Updated 10/01/22 @ 22:57 by Jose Houston MD) Acute eczema BPH (benign prostatic hyperplasia) Pancreatic cancer Right leg DVT Surgical History Surgical History (Updated 10/01/22 @ 22:54 by Jose Houston MD) H/O foot surgery History of liver biopsy S/P excision of lipoma excision 3.5 cm skin cyst of the back with no margin, 9 cm layered closure. Excision 4.2 lipoma left lower back 06/24/22 Family History Family History Father Cancer Mother Supranuclear palsy Social History Social History Smoking status: Never smoker Alcohol intake: never Alcohol use details: seldom Substance use: never Substance use type: does not use Lack of Transportation: No Lack of Food: Never True Current Housing: I Have Housing Concerned About Future Housing: No Difficulty Paying Gas/Electric Bills: No Difficulty Paying for Meds: No Currently Unemployed: No Education: Bachelor's Degree Difficulty w/ Childcare or Family Care: No Living arrangements: with family Occupation/Education: occupation Additional occupation/education comments: Sales Spiritual care concerns: No Exam Narrative: GENERAL: Well-developed, well-nourished, and in no acute distress. HEAD: Normocephalic, atraumatic. EYES: PERRLA and EOMI. ENT: Nares clear, no rhinorrhea or epistaxis. Mucous membranes moist. Oropharynx without tonsillar hypertrophy exudate or other lesions. NECK: Supple. No adenopathy or masses. No carotid bruits or JVD CHEST: Clear to auscultation. No respiratory distress. No wheezes rales or rhonchi HEART: Tachycardic with regular rhythm. No murmur heard. Normal peripheral pulses. ABDOMEN: Puncture wound in epigastrium clean dry and intact with skin glue in place. There is no noted erythema, induration, bleeding or purulent drainage. Soft, diffuse tenderness to palpation, greater in the epigastrium without rebound, nondistended, normal active bowel sounds. EXTREMITIES: Normal range of motion. No edema. SKIN: Warm, dry, no rash. NEURO: No focal deficits. Alert and oriented x3. PSYCH: Normal mood and affect. Course Course Emergency Course: 22:55 - CT PE chest abdomen pel
[2022-10-02] MEDS: APIXABAN 2.5 MG TABLET PO (00:12)
[2022-10-02 00:45] VITALS: BP 108/67; PULSE 68; RESP 16; O2SAT 96
== END 2022-10-02 00:58 | disposition home or self-care (01) ==
PROVIDERS: Emergency Provider Preventive Medicine Aerospace Medicine; PCP Physician Assistant
DX: I26.99 Other pulmonary embolism without acute cor pulmonale (principal); I82.401 Acute embolism and thrombosis of unspecified deep veins of right lower extremity; K86.89 Other specified diseases of pancreas; N40.0 Benign prostatic hyperplasia without lower urinary tract symptoms; R94.31 Abnormal electrocardiogram [ECG] [EKG]; R16.0 Hepatomegaly, not elsewhere classified
CPT/HCPCS: 36415; 71275; 74177; 80053; 83605; 83690; 84484; 85025; 87040; 93005; 96361; 96374; 99284; A9270; J0131; J7030; Q9967

== ENCOUNTER 2022-11-04 09:55 | Observation (INO) | payer OTHER, SELFPAY ==
[2022-11-04] VITALS (45 sets, daily range): BP systolic 100–141; BP diastolic 49–83; PULSE 80–97; RESP 12–26; TEMP 36.5; O2SAT 90–97
--- NOTE | ~2022-11-04 | XR_ITS ---
Portable chest x-ray Comparison: 06/24/2011 Clinical History: Leukocytosis Findings: Right-sided central venous line is in satisfactory position. Lungs are clear, without foca l consolidation or pleural effusion. Cardiomediastinal silhouette is stable. Bones and soft tissues are unremarkable. Impression: Clear lungs. Support line, as above. Reviewed, dictated and finalized at location . Impression: Clear lungs. Support line, as above.
--- NOTE | ~2022-11-04 | CT_ITS ---
CT of the Abdomen and Pelvis: Indication: Abdominal pain, leukocytosis Technique: 2.5 mm axial scans were obtained through the abdomen and pelvis following intravenous adm inistration of 100 cc of Omnipaque 350. Dose reduction technique was used on this scan by utilizing a utomated exposure control and iterative reconstruction technique. The dose-length product (DLP) was 7 79.80 mGy-cm. COMPARISON: 10/01/2022 Findings: Scans through the lung bases demonstrate mild bibasilar atelectatic change. There is proba ble pulmonary embolus in segmental branches in the right lower lobe. There are innumerable hypodense hepatic lesions scattered throughout the liver, consistent with numer ous metastatic lesions. Largest individual lesion measures approximately 2.8 cm in diameter. Small ca lcified gallstone present. There is an irregular hypodense mass the pancreatic tail measuring 2.4 x 2 .3 cm in size, suspicious for pancreatic adenocarcinoma. 1.1 cm left adrenal nodule is indeterminate. The spleen, right adrenal gland, and kidneys are within normal limits. No evidence of aortic aneury sm. Periaortic lymph node measures 1.6 x 1.0 cm (axial image 94). No bowel obstruction or bowel wall thic kening. There is no evidence to suggest acute appendicitis. Small fat-containing umbilical hernia not ed. Images through the pelvis were performed. Urinary bladder unremarkable. Prostate gland and seminal ve sicles are unremarkable. No ascites. Impression: Pulmonary emboli in segmental branches in the right lower lobe. Pancreatic tail mass is again consistent with pancreatic adenocarcinoma. Extensive hepatic metastatic disease, with interval increase in size of most lesions. 1.1 cm left adrenal nodule, and single mildly enlarged para-aortic lymph node, also suspicious for me tastatic lesions. Cholelithiasis. Reviewed, dictated and finalized at [facility]. Impression: Pulmonary emboli in segmental branches in the right lower lobe. Pancreatic tail mass is again consistent with pancreatic adenocarcinoma. Extensive hepatic metastatic disease, with interval increase in size of most le sions. 1.1 cm left adrenal nodule, and single mildly enlarged para-aortic lymph node, also suspicious for metastatic lesions. Cholelithiasis.
--- NOTE | 2022-11-04 10:08 | ECG_ITS ---
Measurements Intervals [place] Rate: 91 P: 38 MD: 147 QRS: -34 QRSD: 102 T: 17 QT: 340 QTc: 419 Interpretive Statements SINUS RHYTHM LOW QRS VOLTAGE IN PRECORDIAL LEADS [QRS DEFLECTION < 1.0 mV IN CHEST LEADS] INFERIOR MYOCARDIAL INFARCTION , PROBABLY OLD [40+ ms Q WAVE AND/OR ST/T ABNORMALITY IN II/aVF] COMPARED TO ECG 10/01/2022 20:51:35 NO SIGNIFICANT CHANGES Electronically Signed On 11-04-2022 15:27:22 CDT by Eron Beck M.D.
--- NOTE | 2022-11-04 10:08 | PC.NURSE ---
Pt ambulates into ER c/o blood clots while at [facility] for pancreatic cancer. States yesterday he had CT scans done at [facility] and was told to go to the ER today for blood clots in the bilateral lungs. States he feels SOB and does have tightness in his chest. States he is on pain med which is helping the pain. Pt takes oxycodone with his last dose being at 0730 this morning. Pt has a port in his right upper chest. States he is on an antibiotic for diverticulitis. States his WBC count was low and had to pass on treatment this week. States he received a WBC booster this week.
--- NOTE | 2022-11-04 10:24 | ED.GENADULT ---
HPI - General Adult General Chief complaint: Unspecified <Sánchez Morin PA-C - Last Filed: 11/04/22 19:13> Stated complaint: blood clot, sent by siteman <DEEPTHI Maldonado Last Filed: 11/04/22 19:13> Time Seen by Provider: 11/04/22 17:09 <Sánchez Morin PA-C - Last Filed: 11/04/22 19:13> Source: patient <DEEPTHI Maldonado Last Filed: 11/04/22 19:13> Mode of arrival: ambulatory <Sánchez Morin PA-C - Last Filed: 11/04/22 19:13> Limitations: no limitations <DEEPTHI Maldonado Last Filed: 11/04/22 19:13> History of Present Illness HPI narrative: This is a 62-year-old male with PMH of pancreatic cancer who presents to our ED after being referred by his cancer doctor for multiple PEs diagnosed on the scan that he had yesterday. His cancer doctor told him to come to the ER to start heparin and then be transferred to a [facility] center. When I interviewed the patient he is tells me that he is still having some chest tightness but feels like he is breathing okay. States he feels fine overall. Denies any cough, fevers, chills, abdominal pain, nausea, vomiting, syncope. <Sánchez Morin PA-C - Last Filed: 11/04/22 19:13> Related Data Allergies/adverse reactions: Allergies Allergy/AdvReac Type Severity Reaction Status Date / Time apixaban Allergy Rash Verified 11/04/22 10:08 <DEEPTHI Maldonado Last Filed: 11/04/22 19:13> Review of Systems Review of Systems: CONSTITUTIONAL: Denies fever, chills, or sweats. EYES: Denies visual changes, redness, or discharge. ENT: Denies rhinorrhea, congestion, sore throat, or otalgia. CARDIOVASCULAR: See HPI RESPIRATORY: Denies cough or dyspnea. GASTROINTESTINAL: Denies abdominal pain, nausea, vomiting, or diarrhea. GENITOURINARY: Denies dysuria or hematuria. SKIN: Denies rash or itching. MUSCULOSKELETAL: Denies back pain, joint pain, or myalgia. NEUROLOGIC: Denies headache, numbness, dizziness, or weakness. PSYCHIATRIC: Denies anxiety or depression. <Sánchez Morin PA-C - Last Filed: 11/04/22 19:13> PMFSH Past Medical History Medical History: Medical History Acute eczema BPH (benign prostatic hyperplasia) Pancreatic cancer Right leg DVT <Sánchez Morin PA-C - Last Filed: 11/04/22 19:13> Surgical History Surgical History: Surgical History H/O foot surgery History of liver biopsy S/P excision of lipoma excision 3.5 cm skin cyst of the back with no margin, 9 cm layered closure. Excision 4.2 lipoma left lower back 06/24/22 <Sánchez Morin PA-C - Last Filed: 11/04/22 19:13> Family History Family History: Family History Father Cancer Mother Supranuclear palsy <Sánchez Morin PA-C - Last Filed: 11/04/22 19:13> Social History Social History: Social History Smoking status: Never smoker Alcohol intake: never Alcohol use details: seldom Substance use: never Substance use type: does not use Lack of Transportation: No Lack of Food: Never True Current Housing: I Have Housing Concerned About Future Housing: No Difficulty Paying Gas/Electric Bills: No Difficulty Paying for Meds: No Currently Unemployed: No Education: Bachelor's Degree Difficulty w/ Childcare or Family Care: No Living arrangements: with family 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 Resting comfortably. HEAD: Normocephalic, atraumatic. EYES: PERRLA and EOMI. ENT: Nares clear, no rhinorrhea or epistaxis. Mucous membranes moist. Oropharynx without tonsillar hypertrop
[2022-11-04 10:47] LABS: Hematocrit 33.4 % (42.0-52.0); Hemoglobin 11.2 g/dL (14.0-18.0); Mean Corpuscular HGB Conc 33.5 g/dl (32-36); Mean Corpuscular Hemoglobin 29.6 pg (26-34); Mean Corpuscular Volume 88.4 fl (80-100); Mean Platelet Volume 9.8 fl (7.4-10.4); Platelet Count Result 195 k/mm3 (150-375); Red Blood Count 3.78 M/mm3 (4.6-6.20); Red Cell Distribution Width 13.2 % (11.5-14.5); White Blood Count 5.5 K/mm3 (4.5-10.0)
[2022-11-04 10:48] LABS: Alanine Aminotransferase 93 U/L (6-50); Albumin Level 3.4 g/dL (3.5-5.1); Alkaline Phosphatase 351 U/L (38-126); Anion Gap 3 mmol/L (8-16); Aspartate Amino Transferase 59 U/L (17-59); Bilirubin,Total 0.8 mg/dL (0.2-1.3); Blood Urea Nitrogen 15 mg/dL (9-20); Calcium 8.4 mg/dL (8.4-10.2); Carbon Dioxide 30 mmol/L (22-30); Chloride 98 mmol/L (98-107); Estimated CRCL calculation 84 ml/min; Estimated Glomerular Filt Rate > 60; Glucose 112 mg/dL (65-110); Lipase 42 U/L (23-300); Potassium 3.9 mmol/L (3.4-5.0); Sodium 131 mmol/L (137-145)
[2022-11-04 10:50] LABS: INR 1.5; Prothrombin Time 18.6 Seconds (11.1-14.7)
[2022-11-04 10:51] LABS: Partial Thromboplastin Time 33.9 SECONDS (22.3-36.8)
[2022-11-04 11:00] LABS: Troponin I < 0.012 ng/mL (0.000-0.034)
[2022-11-04 11:10] LABS: Band Neutrophils Percent 24 % (0-6); Basophils Absolute Manual 0.05 K/mm3 (0.0-0.1); Basophils Percent Manual 1 % (0-1); Eosinophils Absolute Manual 0.27 K/mm3 (0.02-0.5); Eosinophils Percent Manual 5 % (0-4); Lymphocytes Absolute Manual 1.65 K/mm3 (1.1-4.5); Lymphocytes Percent Manual 30 % (18-44); Monocytes Absolute Manual 0.77 K/mm3 (0.1-0.90); Monocytes Percent Manual 14 % (3-9); Neutrophils Absolute Manual 2.75 K/mm3 (1.3-6.7); Neutrophils Percent Manual 26 % (46-73); Total Cells Counted 100
[2022-11-04 11:11] LABS: Platelet Estimate Adequate (Adequate); Schistocytes None Seen (NORMAL)
[2022-11-04] MEDS: ENOXAPARIN 100 MG/ML SYRINGE 91 MG SUB-Q (11:15)
--- NOTE | 2022-11-04 12:21 | PC.NURSE ---
Pt states that he needs to take his two antibiotics and his oxycodone. RN checks with ERP who okays pt's regular medicines. Pt takes one 500mg metronidazole PO, one 500mg Ciprofloxacin PO, and one 5mg oxycodone PO.
--- NOTE | 2022-11-04 12:35 | PC.NURSE ---
Pt requests a meal stating he has not eaten today. RN checks with ERP who oks pt eating. RN puts an order in for a tray.
[2022-11-04] MEDS: ONDANSETRON INJ 4 MG/2 ML VIAL IV PUSH (13:36)
[2022-11-04 13:40] LABS: Troponin I < 0.012 ng/mL (0.000-0.034)
[2022-11-04 16:38] LABS: Troponin I < 0.012 ng/mL (0.000-0.034)
--- NOTE | 2022-11-04 20:00 | PC.NURSE ---
Pt resting comfortably on stretcher. No needs at this time.
[2022-11-05] VITALS (42 sets, daily range): BP systolic 101–123; BP diastolic 53–65; PULSE 78–104; RESP 11–27; TEMP 36.5–37.1; O2SAT 89–96; BMI 30.7
--- NOTE | 2022-11-05 06:05 | PC.NURSE ---
[facility] transport center called at 0030 and it was communicated that there was no change in pt status. Pt still waiting for a bed at [place].
--- NOTE | 2022-11-05 08:07 | PC.NURSE ---
patient finished with breakfast at this time.
--- NOTE | 2022-11-05 09:24 | PC.NURSE ---
Spoke with [facility] transfer center at this time. There are still no beds available and patient is still on waitlist. It will most likely be several days before patient has bed at [facility] available. Dr Zayas notified.
[2022-11-05] MEDS: ENOXAPARIN 100 MG/ML SYRINGE SUB-Q (13:26)
[2022-11-05 14:14] LABS: Hematocrit 35.3 % (42.0-52.0); Hemoglobin 11.9 g/dL (14.0-18.0); Immature Platelet Fraction Pct 3.4 % (0.9-11.2); Mean Corpuscular HGB Conc 33.7 g/dl (32-36); Mean Corpuscular Hemoglobin 29.7 pg (26-34); Mean Platelet Volume 9.6 fl (7.4-10.4); Platelet Count Result 271 k/mm3 (150-375); Red Blood Count 4.01 M/mm3 (4.6-6.20); Red Cell Distribution Width 13.6 % (11.5-14.5); White Blood Count 17.3 K/mm3 (4.5-10.0)
[2022-11-05 14:24] LABS: INR 1.2; Partial Thromboplastin Time 22.8 SECONDS (22.3-36.8); Prothrombin Time 15.5 Seconds (11.1-14.7)
[2022-11-05 14:25] LABS: Alanine Aminotransferase 79 U/L (6-50); Albumin Level 3.4 g/dL (3.5-5.1); Alkaline Phosphatase 391 U/L (38-126); Anion Gap 3 mmol/L (8-16); Aspartate Amino Transferase 55 U/L (17-59); Bilirubin,Total 0.7 mg/dL (0.2-1.3); Blood Urea Nitrogen 12 mg/dL (9-20); Calcium 8.5 mg/dL (8.4-10.2); Carbon Dioxide 31 mmol/L (22-30); Chloride 99 mmol/L (98-107); Estimated CRCL calculation 84 ml/min; Estimated Glomerular Filt Rate > 60; Glucose 80 mg/dL (65-110); Potassium 3.9 mmol/L (3.4-5.0); Sodium 133 mmol/L (137-145)
--- NOTE | 2022-11-05 14:48 | ADMGEN ---
This patient, Vicente Peterson, was admitted to 3 Medical Room 345-01. Patient/family oriented to hospital policies and general routines including ID bracelet, bed and alarms, visiting hours, pain management, procedures, bathroom and other care routines, personal items, smoking policy, room service/diet, and visiting hours. Information on how to activate the Rapid Response Team has been discussed. Patient/Family are encouraged to report perceived risks to care and to ask questions if they do not understand what they are told or what they should do.
[2022-11-05 14:53] LABS: Band Neutrophils Percent 24 % (0-6); Eosinophils Absolute Manual 0.17 K/mm3 (0.02-0.5); Eosinophils Percent Manual 1 % (0-4); Lymphocytes Absolute Manual 2.07 K/mm3 (1.1-4.5); Metamyelocytes Percent 1 %; Monocytes Absolute Manual 2.59 K/mm3 (0.1-0.90); Monocytes Percent Manual 15 % (3-9); Neutrophils Absolute Manual 12.28 K/mm3 (1.3-6.7); Neutrophils Percent Manual 47 % (46-73); Platelet Estimate Adequate (Adequate); Schistocytes None Seen (NORMAL); Total Cells Counted 100
[2022-11-05 14:54] LABS: Anisocytosis 2+ (NORMAL)
[2022-11-05 14:55] LABS: Polychromasia 1+ (NORMAL)
--- NOTE | 2022-11-05 15:12 | PM.IMHP ---
H&P: HPI History of Present Illness Date/Time: 11/05/22 15:12 Chief Complaint: Multiple Pes Narrative: this is a 62-year-old male patient who has a history of pancreatic cancer. The patient goes to the [facility] at [facility]. The patient has been diagnosed with PEs and and DVTs Over 3 weeks agoand had been on Eliquis however the patient had as severe rash with the Eliquis. the patient was placed on Xarelto. the patient developed a GI bleed and episode of epistaxis. The patient had also been on NSAIDs at that time. The patient was found to have diverticulitis at that time. The patient had 2 episodes of bright red rectal bleeding mixed with stool. It was noted that the patient was restarted on Xarelto at discharge. Please see his discharge note from 10/31/2022. The patient was noted to be discharged on Xarelto. The patient came to the emergency room at [facility] to be treated with a heparin drip. The patient stated that his oncologist told him to come to [facility] and that he could be transferred to [facility]. The patient was placed on a wait list for [facility]. The patient was upset about having to wait in the emergency room for a bed at [facility]. The patient stated that he would rather be admitted here and treated for his PEs. The patient had been given subcu Lovenox. Hematology oncology had been consulted and heparin drip was started as per Oncology. His H&H is currently 10.7 and 32.0. His white count is 25.9. The patient looks like he had to therapeutic doses of Lovenox while waiting for transfer to [facility]. However the patient now tells me that he does not want to be transferred to [facility] and just wants to be placed on blood thinners and be discharged to home. His sodium is 133. His ALT 79 alkaline phosphatase 391. The patient stated that he is still getting chemotherapy. The patient is not a candidate for Whipple his he has some Mets to his liver as well. The patient does not have any discomfort at This time. The patient is being admitted to observation status on the date of service of 11/05/2022. Review of Systems Review of Systems: All systems reviewed & are unremarkable except as noted in HPI and below Constitutional: Constitutional: Reports as per HPI and Reports no additional constitutional complaints Eyes: Eyes: Reports as per HPI and Reports no additional eye complaints ENT: Reports system reviewed and no additional complaints, except as documented and Reports Normal hearing present Cardiovascular: Cardiovascular: Reports no additional cardiovascular complaints Respiratory: Respiratory: Reports no additional respiratory complaints and Reports no additional respiratory complaints Gastrointestinal: Gastrointestinal: Reports as per HPI and Reports no additional gastrointestinal complaints Musculoskeletal: Musculoskeletal: Reports no additional musculoskeletal complaints Integumentary/Breasts: Skin/Breast: Reports system reviewed and no additional complaints, except as docu and Reports as per HPI Neurologic: Reports system reviewed and no additional complaints, except as documented, Reports as per HPI and Reports Normal hearing present Psychiatric: Psychiatric: Reports no additional psychiatric complaints and Reports as per HPI Endocrine: Endocrine: Reports no additional endocrine complaints Hematologic/Lymphatic: Hematologic/Lymphatic: Reports no additional hematologic/lymphatic complaints Allergic/Immunologic: Allergic/Immunologic: Reports no additional allergic/immunologic complaints [facility] Past Medical History Medical History (Updated 11/06/22 @ 01:22 by Oumou Jewell NP) Acute eczema BPH (benign prostatic hyperplasia) Diverticulosis History of diverticulitis Pancreatic cancer Port-A-Cath in place Right leg DVT Skin cyst Surgical History Surgical History H/O foot surgery History of liver biopsy S/P excision of lipoma excision 3.5 cm skin
--- NOTE | 2022-11-05 17:46 | PDONCCN ---
[facility] - Date of Consult Date/Time: 11/05/22 17:46 Requesting Physician: Rome Zambrano MD Primary Care Provider: Trey Stanton PA-C - Consult Narrative Reason for consult: Metastatic pancreatic cancer with hypercoagulable state Narrative: Vicente Peterson is a 62 year old male with recently diagnosed metastatic pancreatic cancer with liver involvement and just started chemotherapy with FOLFIRINOX regimen at [facility] and received 1st chemotherapy little over 2 weeks ago. Prior to diagnosis of pancreatic cancer he was diagnosed with pulmonary embolism and was started on Xarelto. He started having some rectal bleeding few days ago and Xarelto was placed on hold over the weekend. While Xarelto was on hold patient started having shortness of breath and chest discomfort. He had CT chest done at [facility] that showed recurrent pulmonary embolism and extensive right lower extremity DVT. He came into the ER and received dose of the Lovenox. Labs showed normal platelet count and slightly low hemoglobin of 11.2. His breathing has already improved. He denies any further rectal bleeding. Review of Systems - Review of Systems All systems reviewed & are unremarkable except as noted in HPI and [facility] Medical History: Medical History (Last Reviewed 10/06/22 @ 10:56 by Trey Stanton PA-C) Acute eczema BPH (benign prostatic hyperplasia) Pancreatic cancer Right leg DVT Surgical History: Surgical History (Last Reviewed 10/06/22 @ 10:56 by Trey Stanton PA-C) H/O foot surgery History of liver biopsy S/P excision of lipoma excision 3.5 cm skin cyst of the back with no margin, 9 cm layered closure. Excision 4.2 lipoma left lower back 06/24/22 Family History: Family History (Last Reviewed 11/05/22 @ 14:53 by Heidi Liz RN) Father Cancer Mother Supranuclear palsy - Social History Social History: Social History (Last Reviewed 10/06/22 @ 10:56 by Trey Stanton PA-C) Alcohol Use: Alcohol intake: never Alcohol use details: seldom Substance Use: Substance use: current Substance use type: painkillers Others: Spiritual care concerns: No Living Arrangements: Living arrangements: with family Oppucation/Education: Occupation/Education: occupation Smoking Status: Smoking status: Never smoker Social Determinants of Health: Has the Lack of Transportation Kept You From Medical Appointments or From Getting Medications?: No Within the Past 12 Months, Were You Worried Whether Your Food Would Run Out Before You Got Money to Buy More?: Never True What is Your Housing Situation Today?: Decline to Answer Are You Worried That in the Next 2 Months, You May Not Have Your Own Housing to Live In?: Decline to Answer Do You Have Trouble Paying Your Heating Or Electricity Bill?: Decline to Answer Do You Have Trouble Paying For Medicines?: Decline to Answer Are You Currently Unemployed and Looking for Work?: Decline to Answer Highest Level of Education Completed: Decline to Answer Do You Have Trouble With Childcare or the Care of a Family Member?: Decline to Answer Exam - Vital Signs Vital Signs - 24 hr 11/04/22 20:00 11/05/22 00:32 11/05/22 02:32 Temperature Pulse Rate 90 82 82 Respiratory Rate 18 15 15 Blood Pressure 128/69 101/62 104/58 L Pulse Oximetry 97 93 95 Oxygen Delivery 11/05/22 06:05 11/05/22 08:08 11/05/22 12:43 Temperature 36.5 C 36.6 C Pulse Rate 82 94 84 Respiratory Rate 15 17 17 Blood Pressure 110/53 L 111/60 123/65 Pulse Oximetry 92 95 96 Oxygen Delivery 11/05/22 02:01 11/05/22 02:50 11/05/22 03:15 Temperature Pulse Rate 84 79 83 Respiratory Rate 20 17 20 Blood Pressure 104/58 L Pulse Oximetry 94 89 L 91 Oxygen Delivery 11/05/22 03:30 11/05/22 03:45 11/05/22 04:00 Temperature Pulse Rate 84 82 80 Respira
--- NOTE | 2022-11-05 22:07 | PC.NURSE ---
SPOKE WITH TANI REGARDING HEPARIN TREATMENT FOR PATIENT. WAS DIRECTED TO CONTACT DR RAMIREZ REGARDING CURRENT TREATMENT PLAN OF OVERNIGHT HEPARIN DRIP. EXCHANGE CALLED. AWAIT CALL BACK.
[2022-11-05] MEDS: HEPARIN SODIUM 5,000 UNITS/ML VIAL 6000 UNITS IV PUSH (23:31)
[2022-11-05] MEDS: HEPARIN SOD/D5W 100 UNITS/ML 25,000 UNITS/250 ML BAG 14 UNITS IV CONT (23:32)
[2022-11-06] VITALS (10 sets, daily range): BP systolic 101–114; BP diastolic 53–71; PULSE 79–95; RESP 16–18; TEMP 36.6–37.1; O2SAT 91–95
[2022-11-06 00:23] LABS: Hemoglobin 10.7 g/dL (14.0-18.0); Mean Corpuscular HGB Conc 33.4 g/dl (32-36); Mean Corpuscular Hemoglobin 29.7 pg (26-34); Mean Corpuscular Volume 88.9 fl (80-100); Mean Platelet Volume 9.8 fl (7.4-10.4); Platelet Count Result 258 k/mm3 (150-375); Red Cell Distribution Width 13.6 % (11.5-14.5); White Blood Count 25.9 K/mm3 (4.5-10.0)
[2022-11-06 00:35] LABS: INR 1.3; Prothrombin Time 17.2 Seconds (11.1-14.7)
[2022-11-06 00:45] LABS: Partial Thromboplastin Time 160.1 SECONDS (22.3-36.8)
[2022-11-06 00:51] LABS: Anisocytosis 1+ (NORMAL); Band Neutrophils Percent 59 % (0-6); Eosinophils Absolute Manual 0.25 K/mm3 (0.02-0.5); Eosinophils Percent Manual 1 % (0-4); Lymphocytes Absolute Manual 3.62 K/mm3 (1.1-4.5); Metamyelocytes Percent 4 %; Monocytes Absolute Manual 2.33 K/mm3 (0.1-0.90); Monocytes Percent Manual 9 % (3-9); Neutrophils Absolute Manual 18.64 K/mm3 (1.3-6.7); Neutrophils Percent Manual 13 % (46-73); Platelet Estimate Adequate (Adequate); Poikilocytosis 1+ (NORMAL); Total Cells Counted 100
[2022-11-06 00:52] LABS: Atypical Lymphocytes Present; Hypochromasia 1+ (NORMAL); Schistocytes Rare (NORMAL); Smudge Cells PRESENT
--- NOTE | 2022-11-06 07:30 | PM.IMPN ---
Progress Note: A&P Assessment and Plan (1) Pulmonary emboli: Qualifiers: Acute cor pulmonale presence: without acute cor pulmonale Chronicity: acute Pulmonary embolism type: saddle Qualified Code(s): I26.92 - Saddle embolus of pulmonary artery without acute cor pulmonale Code(s): I26.99 - Other pulmonary embolism without acute cor pulmonale Status: Acute Assessment and Plan: CTA preformed at an outside hospital showed multiple PEs Referred to here from his oncologist Lovenox given in the ED Xarelto can be started today per oncology No shortness of breath, chest pain, tachycardia oncology consulted (2) Pancreatic cancer: Qualifiers: Pancreatic malignancy location: unspecified Qualified Code(s): C25.9 - Malignant neoplasm of pancreas, unspecified Code(s): C25.9 - Malignant neoplasm of pancreas, unspecified Status: Acute Assessment and Plan: Treatment is at [facility] at [facility]. Continue outpatient treatment (3) BPH (benign prostatic hyperplasia): Qualifiers: Lower urinary tract symptom presence: unspecified whether lower urinary tract symptoms present Qualified Code(s): N40.0 - Benign prostatic hyperplasia without lower urinary tract symptoms Code(s): N40.0 - Benign prostatic hyperplasia without lower urinary tract symptoms Status: Acute Assessment and Plan: Continue with tamsulosin Trend urine output stable (4) Leukocytosis: Qualifiers: Leukocytosis type: bandemia Qualified Code(s): D72.825 - Bandemia Code(s): D72.829 - Elevated white blood cell count, unspecified Status: Acute Assessment and Plan: WBC continue to elevate Upon admission 17.3, then 25.9, currently 31.8 No areas or signs of infections to note Continue to trend Claims to just of had a Neupogen injection His baseline WBC is about 2 Bands present at 50 Plan patient recently had bloody stools due to diverticulitis. Continue with pantoprazole Time Spent With Patient Time: 52 minutes Subjective Date/time seen: 11/06/22729 Interval history: 11/06/22729 patient is resting in bed comfortably. Patient states that he feels okay and denies any chest pain, shortness a breath, nausea,, diarrhea or constipation. He did state that his bowels were about to move. He also stated he has been on antibiotics for colitis. He denies any fevers sweats or chills. WBCs are elevated and currently at 31.8. blood cultures, urine culture, chest x-ray ordered. 11/05/22? 15:12 ?this is a 62-year-old male patient who has a history of pancreatic cancer.? The patient goes to the [facility] at [facility].? The patient has been diagnosed with PEs and? and DVTs ? Over 3 weeks agoand had been on? Eliquis however the patient had as severe rash with the Eliquis. ? the patient was placed on Xarelto. the patient developed a GI bleed and episode of epistaxis.? The patient had also been on NSAIDs at that time.? The patient was found to have diverticulitis at that time.? The patient had 2 episodes of bright red rectal bleeding mixed with stool.? It was noted that the patient was restarted on Xarelto at discharge.? Please see his discharge note from 10/31/2022.? The patient was noted to be discharged on Xarelto.? The patient came to the emergency room at [facility] to be treated with a heparin drip.? The patient stated that his oncologist told him to come to [facility] and that he could be? transferred to [facility].? The patient was placed on a wait list for [facility].? The patient was upset about having to wait in the emergency room for a bed at [facility].? The patient stated that he would rather be admitted here and treated for his PEs.? The patient had been given subcu Lovenox.? Hematology oncology had been consulted and heparin drip was started as per Oncology.? His H&H is currently 10.7 and 32.0.? His wh
[2022-11-06 08:09] LABS: Hematocrit 33.3 % (42.0-52.0); Hemoglobin 11.2 g/dL (14.0-18.0); Mean Corpuscular HGB Conc 33.6 g/dl (32-36); Mean Corpuscular Hemoglobin 29.6 pg (26-34); Mean Corpuscular Volume 87.9 fl (80-100); Mean Platelet Volume 9.4 fl (7.4-10.4); Platelet Count Result 250 k/mm3 (150-375); Red Blood Count 3.79 M/mm3 (4.6-6.20); Red Cell Distribution Width 13.7 % (11.5-14.5); White Blood Count 31.8 K/mm3 (4.5-10.0)
[2022-11-06 08:21] LABS: Lactic Acid Reflex 1.2 mmol/L (0.7-2.0)
[2022-11-06 08:22] LABS: Partial Thromboplastin Time 93.7 SECONDS (22.3-36.8)
[2022-11-06 08:23] LABS: Alanine Aminotransferase 71 U/L (6-50); Albumin Level 3.3 g/dL (3.5-5.1); Alkaline Phosphatase 417 U/L (38-126); Anion Gap 2 mmol/L (8-16); Aspartate Amino Transferase 59 U/L (17-59); Bilirubin,Total 0.6 mg/dL (0.2-1.3); Blood Urea Nitrogen 13 mg/dL (9-20); Calcium 8.4 mg/dL (8.4-10.2); Carbon Dioxide 32 mmol/L (22-30); Chloride 99 mmol/L (98-107); Estimated CRCL calculation 76 ml/min; Estimated Glomerular Filt Rate > 60; Glucose 100 mg/dL (65-110); Magnesium 1.7 mg/dL (1.6-2.3); Potassium 3.8 mmol/L (3.4-5.0); Sodium 133 mmol/L (137-145)
[2022-11-06] MEDS: valACYclovir HCL 500 MG TABLET 2000 MG PO ×2 (08:57→20:38)
[2022-11-06] MEDS: PANTOPRAZOLE 40 MG TABLET PO (08:58)
[2022-11-06] MEDS: TAMSULOSIN HCL 0.4 MG CAPSULE PO (08:58)
[2022-11-06 10:25] LABS: CRP 5.6 mg/dL (<1.0)
[2022-11-06 10:34] LABS: NT Pro B Type Natriuretic Pept 36 pg/mL (19.9-100)
[2022-11-06 10:40] LABS: Atypical Lymphocytes Present; Band Neutrophils Percent 21 % (0-6); Eosinophils Absolute Manual 1.27 K/mm3 (0.02-0.5); Eosinophils Percent Manual 4 % (0-4); Lymphocytes Absolute Manual 4.45 K/mm3 (1.1-4.5); Metamyelocytes Percent 1 %; Monocytes Absolute Manual 0.95 K/mm3 (0.1-0.90); Monocytes Percent Manual 3 % (3-9); Neutrophils Percent Manual 57 % (46-73); Nucleated Red Blood Cells 3 %; Platelet Estimate Adequate (Adequate); Total Cells Counted 100
[2022-11-06 10:41] LABS: Anisocytosis 1+ (NORMAL); Schistocytes Rare (NORMAL)
[2022-11-06 10:42] LABS: Smudge Cells PRESENT
--- NOTE | 2022-11-06 10:42 | PHAR ---
HOME MEDS: CIPROFLOXACIN HCL 500 MG TAB, TAKE ONE TABLET BY MOUTH TWICE A DAY FOR 10 DAYS. 6 TABLETS IN THE BOTTLE. METRONIDAZOLE 500 MG TABLET TAKE ONE TABLET BY MOUTH TWICE A DAY. 6 TABLETS IN THE BOTTLE. VERIFIED BY PHARMACY.
[2022-11-06 11:04] LABS: IFOB Positive Control Positive; Immunochemical Fecal Occult Bl Negative (N)
[2022-11-06 11:33] LABS: Erythrocyte Sedimentation Rate 34 mm/hr (0-20)
[2022-11-06 13:01] LABS: Free T4 Free Thyroxine Reflex 2.08 ng/dL (0.78-2.19)
[2022-11-06 13:42] LABS: Appearance Urine Clear (Clear); Bilirubin Urine Negative (Negative); Blood Urine Negative (Negative); Color Urine Yellow (Yellow); Glucose Urine UA Negative (Negative); Ketones Urine Negative (Negative); Leukocyte Esterase Ur Negative LEU/UL (Negative); Nitrate Urine Negative (Negative); Protein Urine Negative (Negative); Specific Grav Ur 1.004 (1.001-1.035); Urobilinogen Urine 0.2 mg/dL (<2.0)
[2022-11-06 13:54] LABS: Add Urine Microscopic? NO
[2022-11-06 14:21] LABS: Partial Thromboplastin Time 103.2 SECONDS (22.3-36.8)
[2022-11-06] MEDS: HYDROcodone/acetaminophen (*CRX) 5-325 MG TABLET 1 TAB PO ×2 (16:13→22:24)
[2022-11-06] MEDS: RIVAROXABAN 15 MG TABLET PO (17:13)
[2022-11-06] MEDS: CIPROFLOXACIN 500 MG TAB 1 EACH PO (17:14)
[2022-11-06] MEDS: metroNIDAZOLE 500 MG TABLET 1 EACH PO (17:15)
[2022-11-07] VITALS (11 sets, daily range): BP systolic 105–116; BP diastolic 58–66; PULSE 77–107; RESP 18–20; TEMP 36.4–36.7; O2SAT 92–96
[2022-11-07] MEDS: HYDROcodone/acetaminophen (*CRX) 5-325 MG TABLET 1 TAB PO ×4 (05:41→23:05)
[2022-11-07 06:18] LABS: Hematocrit 33.7 % (42.0-52.0); Hemoglobin 11.2 g/dL (14.0-18.0); Mean Corpuscular HGB Conc 33.2 g/dl (32-36); Mean Corpuscular Hemoglobin 29.2 pg (26-34); Mean Corpuscular Volume 87.8 fl (80-100); Mean Platelet Volume 9.7 fl (7.4-10.4); Platelet Count Result 278 k/mm3 (150-375); Red Blood Count 3.84 M/mm3 (4.6-6.20); Red Cell Distribution Width 13.8 % (11.5-14.5); White Blood Count 33.6 K/mm3 (4.5-10.0)
[2022-11-07 06:31] LABS: Alanine Aminotransferase 71 U/L (6-50); Albumin Level 3.4 g/dL (3.5-5.1); Alkaline Phosphatase 464 U/L (38-126); Anion Gap 1 mmol/L (8-16); Aspartate Amino Transferase 67 U/L (17-59); Bilirubin,Total 0.5 mg/dL (0.2-1.3); Blood Urea Nitrogen 10 mg/dL (9-20); Calcium 8.3 mg/dL (8.4-10.2); Carbon Dioxide 34 mmol/L (22-30); Chloride 100 mmol/L (98-107); Estimated CRCL calculation 84 ml/min; Estimated Glomerular Filt Rate > 60; Glucose 103 mg/dL (65-110); Magnesium 1.8 mg/dL (1.6-2.3); Potassium 3.5 mmol/L (3.4-5.0); Sodium 135 mmol/L (137-145)
[2022-11-07 07:17] LABS: Atypical Lymphocytes Present; Band Neutrophils Percent 15 % (0-6); Eosinophils Absolute Manual 0.67 K/mm3 (0.02-0.5); Eosinophils Percent Manual 2 % (0-4); Lymphocytes Absolute Manual 4.03 K/mm3 (1.1-4.5); Metamyelocytes Percent 1 %; Monocytes Absolute Manual 3.36 K/mm3 (0.1-0.90); Monocytes Percent Manual 10 % (3-9); Myelocytes Percent 1 %; Neutrophils Absolute Manual 24.86 K/mm3 (1.3-6.7); Neutrophils Percent Manual 59 % (46-73); Nucleated Red Blood Cells 1 %; Platelet Clumps Present; Platelet Estimate Adequate (Adequate); Schistocytes None Seen (NORMAL); Total Cells Counted 100
[2022-11-07 07:18] LABS: Smudge Cells PRESENT
[2022-11-07] MEDS: RIVAROXABAN 15 MG TABLET PO ×2 (09:48→17:22)
[2022-11-07] MEDS: metroNIDAZOLE 500 MG TABLET 1 EACH PO ×2 (09:48→21:00)
[2022-11-07] MEDS: valACYclovir HCL 500 MG TABLET 2000 MG PO (09:48)
[2022-11-07] MEDS: TAMSULOSIN HCL 0.4 MG CAPSULE PO (09:48)
[2022-11-07] MEDS: PANTOPRAZOLE 40 MG TABLET PO (09:49)
[2022-11-07] MEDS: CIPROFLOXACIN 500 MG TAB 1 EACH PO ×2 (09:49→17:22)
[2022-11-07 12:16] LABS: Glucose Point of Care 188 mg/dl (65-105)
--- NOTE | 2022-11-07 12:45 | PM.IMPN ---
Progress Note: A&P Assessment and Plan (1) Pulmonary emboli: Qualifiers: Acute cor pulmonale presence: without acute cor pulmonale Chronicity: acute Pulmonary embolism type: saddle Qualified Code(s): I26.92 - Saddle embolus of pulmonary artery without acute cor pulmonale Code(s): I26.99 - Other pulmonary embolism without acute cor pulmonale Status: Acute Assessment and Plan: CTA preformed at an outside hospital showed multiple PEs Referred to here from his oncologist Lovenox given in the ED Xarelto can be started today per oncology No shortness of breath, chest pain, tachycardia oncology consulted (2) Pancreatic cancer: Qualifiers: Pancreatic malignancy location: unspecified Qualified Code(s): C25.9 - Malignant neoplasm of pancreas, unspecified Code(s): C25.9 - Malignant neoplasm of pancreas, unspecified Status: Acute Assessment and Plan: Treatment is at [facility] at [facility]. Continue outpatient treatment (3) BPH (benign prostatic hyperplasia): Qualifiers: Lower urinary tract symptom presence: unspecified whether lower urinary tract symptoms present Qualified Code(s): N40.0 - Benign prostatic hyperplasia without lower urinary tract symptoms Code(s): N40.0 - Benign prostatic hyperplasia without lower urinary tract symptoms Status: Acute Assessment and Plan: Continue with tamsulosin Trend urine output stable (4) Leukocytosis: Qualifiers: Leukocytosis type: bandemia Qualified Code(s): D72.825 - Bandemia Code(s): D72.829 - Elevated white blood cell count, unspecified Status: Acute Assessment and Plan: WBC continue to elevate Upon admission 17.3, then 25.9, then 31.8, now 33.6 No notable left sided shift Get a CT of the abdomen and pelvis, since he is currently on treatment for diverticulitis Wonder if this is C. Diff, could also be from the neupogen No areas or signs of infections to note Continue to trend Claims to just of had a Neupogen injection His baseline WBC is about 2 Bands present at 50, down to 15 Plan patient recently had bloody stools due to diverticulitis. Continue with pantoprazole Time Spent With Patient Time: 48 minutes Time with patient: Greater than 35 minutes Subjective Date/time seen: 11/07/22 1245 Interval history: 11/07/22 1245 patient lying in bed. Patient denies any current chest pain, shortness a breath nausea, vomiting, diarrhea constipation. He did endorse that he was having more cramping. He did state that he had 2 BMs this morning the 1st 1 being marbles the 2nd 1 being more formed. His was also present. Spoke to them about his white count being 33,000 today. C diff never did come back however no fevers noted. With some of the complaining of the abdomen will get a CT of the abdomen. Concerned that this might be C diff. however of note the patient did have an neupogen shot a few weeks ago. 11/06/22 0730 patient is resting in bed comfortably. Patient states that he feels okay and denies any chest pain, shortness a breath, nausea,, diarrhea or constipation. He did state that his bowels were about to move. He also stated he has been on antibiotics for colitis. He denies any fevers sweats or chills. WBCs are elevated and currently at 31.8. blood cultures, urine culture, chest x-ray ordered. 11/05/22? 15:12 ?this is a 62-year-old male patient who has a history of pancreatic cancer.? The patient goes to the [facility].? The patient has been diagnosed with PEs and? and DVTs ? Over 3 weeks agoand had been on? Eliquis however the patient had as severe rash with the Eliquis. ? the patient was placed on Xarelto. the patient developed a GI bleed and episode of epistaxis.? The patient had also been on NSAIDs at that time.? The patient was found to have diverticulitis at that
--- NOTE | 2022-11-07 12:45 | P.PNIM_ITS ---
Progress Note: A&P Assessment and Plan (1) Pulmonary emboli: Qualifiers: Acute cor pulmonale presence: without acute cor pulmonale Chronicity: acute Pulmonary embolism type: saddle Qualified Code(s): I26.92 - Saddle embolus of pulmonary artery without acute cor pulmonale Code(s): I26.99 - Other pulmonary embolism without acute cor pulmonale Status: Acute Assessment and Plan: * CTA preformed at an outside hospital showed multiple PEs * Referred to here from his oncologist * Lovenox given in the ED * Xarelto can be started today per oncology * No shortness of breath, chest pain, tachycardia * oncology consulted (2) Pancreatic cancer: Qualifiers: Pancreatic malignancy location: unspecified Qualified Code(s): C25.9 - Malignant neoplasm of pancreas, unspecified Code(s): C25.9 - Malignant neoplasm of pancreas, unspecified Status: Acute Assessment and Plan: * Treatment is at [facility] at [facility]. * Continue outpatient treatment (3) BPH (benign prostatic hyperplasia): Qualifiers: Lower urinary tract symptom presence: unspecified whether lower urinary tract symptoms present Qualified Code(s): N40.0 - Benign prostatic hyperplasia without lower urinary tract symptoms Code(s): N40.0 - Benign prostatic hyperplasia without lower urinary tract symptoms Status: Acute Assessment and Plan: * Continue with tamsulosin * Trend urine output * stable (4) Leukocytosis: Qualifiers: Leukocytosis type: bandemia Qualified Code(s): D72.825 - Bandemia Code(s): D72.829 - Elevated white blood cell count, unspecified Status: Acute Assessment and Plan: * WBC continue to elevate * Upon admission 17.3, then 25.9, then 31.8, now 33.6 * No notable left sided shift * Get a CT of the abdomen and pelvis, since he is currently on treatment for diverticulitis * Wonder if this is C. Diff, could also be from the neupogen * No areas or signs of infections to note * Continue to trend * Claims to just of had a Neupogen injection * His baseline WBC is about 2 * Bands present at 50, down to 15 Plan patient recently had bloody stools due to diverticulitis. Continue with pantoprazole Time Spent With Patient Time: 48 minutes Time with patient: Greater than 35 minutes Subjective Date/time seen: 11/07/22 1245 Interval history: 11/07/22 1245 patient lying in bed. Patient denies any current chest pain, shortness a breath nausea, vomiting, diarrhea constipation. He did endorse that he was having more cramping. He did state that he had 2 BMs this morning the 1st 1 being marbles the 2nd 1 being more formed. His was also present. Spoke to them about his white count being 33,000 today. C diff never did come back however no fevers noted. With some of the complaining of the abdomen will get a CT of the abdomen. Concerned that this might be C diff. however of note the patient did have an neupogen shot a few weeks ago. 11/06/22 0730 patient is resting in bed comfortably. Patient states that he feels okay and denies any chest pain, shortness a breath, nausea,, diarrhea or constipation. He did state that his bowels were about to move. He also stated he has been on antibiotics for colitis. He denies any fevers sweats or chills. WBCs are elevated and currently at 31.8. blood cultures, urine culture, chest x-ray ordered. 11/05/22? 15:12 ?t
[2022-11-07 14:41] LABS: Heparin, Anti-XA 1.73 IU/mL
[2022-11-08] VITALS: PULSE 81
[2022-11-08 04:00] VITALS: PULSE 74
[2022-11-08] MEDS: HYDROcodone/acetaminophen (*CRX) 5-325 MG TABLET 1 TAB PO ×2 (05:34→11:11)
[2022-11-08 06:00] VITALS: BP 108/74; PULSE 73; RESP 18; TEMP 36.8; O2SAT 96
[2022-11-08 06:11] LABS: Hematocrit 33.6 % (42.0-52.0); Mean Corpuscular HGB Conc 32.7 g/dl (32-36); Mean Corpuscular Hemoglobin 28.8 pg (26-34); Mean Platelet Volume 9.1 fl (7.4-10.4); Platelet Count Result 230 k/mm3 (150-375); Red Blood Count 3.82 M/mm3 (4.6-6.20); Red Cell Distribution Width 14.1 % (11.5-14.5); White Blood Count 34.5 K/mm3 (4.5-10.0)
[2022-11-08 06:25] LABS: Alanine Aminotransferase 80 U/L (6-50); Albumin Level 3.3 g/dL (3.5-5.1); Alkaline Phosphatase 457 U/L (38-126); Anion Gap 3 mmol/L (8-16); Aspartate Amino Transferase 81 U/L (17-59); Bilirubin,Total 0.4 mg/dL (0.2-1.3); Blood Urea Nitrogen 13 mg/dL (9-20); Calcium 8.2 mg/dL (8.4-10.2); Carbon Dioxide 32 mmol/L (22-30); Chloride 100 mmol/L (98-107); Estimated CRCL calculation 84 ml/min; Estimated Glomerular Filt Rate > 60; Glucose 95 mg/dL (65-110); Magnesium 1.8 mg/dL (1.6-2.3); Potassium 3.8 mmol/L (3.4-5.0); Sodium 135 mmol/L (137-145)
[2022-11-08 06:56] LABS: Anisocytosis 1+ (NORMAL); Band Neutrophils Percent 21 % (0-6); Hypochromasia 1+ (NORMAL); Lymphocytes Absolute Manual 4.14 K/mm3 (1.1-4.5); Metamyelocytes Percent 3 %; Monocytes Absolute Manual 5.17 K/mm3 (0.1-0.90); Monocytes Percent Manual 15 % (3-9); Myelocytes Percent 2 %; Neutrophils Absolute Manual 23.46 K/mm3 (1.3-6.7); Neutrophils Percent Manual 47 % (46-73); Platelet Estimate Adequate (Adequate); Schistocytes None Seen (NORMAL); Total Cells Counted 100
[2022-11-08 08:00] VITALS: PULSE 73; RESP 18; O2SAT 96
[2022-11-08] MEDS: PANTOPRAZOLE 40 MG TABLET PO (11:09)
[2022-11-08] MEDS: metroNIDAZOLE 500 MG TABLET 1 EACH PO (11:10)
[2022-11-08] MEDS: TAMSULOSIN HCL 0.4 MG CAPSULE PO (11:10)
[2022-11-08] MEDS: RIVAROXABAN 15 MG TABLET PO (11:10)
[2022-11-08] MEDS: CIPROFLOXACIN 500 MG TAB 1 EACH PO (11:11)
[2022-11-08] MEDS: DOCUSATE SODIUM 100 MG CAPSULE PO (12:02)
[2022-11-08 14:00] VITALS: BP 121/61; PULSE 78; RESP 16; TEMP 36.3; O2SAT 97
--- NOTE | 2022-11-08 14:27 | P.DS_ITS ---
DS: Admitting Diagnosis Discharge Date 11/08/22 Admitting Diagnosis PE DS: Discharge Diagnosis Discharge Diagnosis (1) Pulmonary emboli: Qualifiers: Acute cor pulmonale presence: without acute cor pulmonale Chronicity: acute Pulmonary embolism type: saddle Qualified Code(s): I26.92 - Saddle embolus of pulmonary artery without acute cor pulmonale Code(s): I26.99 - Other pulmonary embolism without acute cor pulmonale Status: Acute Assessment and Plan: * CTA preformed at an outside hospital showed multiple PEs * Referred to here from his oncologist * Lovenox given in the ED * Xarelto can be started today per oncology * No shortness of breath, chest pain, tachycardia * oncology consulted (2) Pancreatic cancer: Qualifiers: Pancreatic malignancy location: unspecified Qualified Code(s): C25.9 - Malignant neoplasm of pancreas, unspecified Code(s): C25.9 - Malignant neoplasm of pancreas, unspecified Status: Acute Assessment and Plan: * Treatment is at [facility] at [facility]. * Continue outpatient treatment (3) BPH (benign prostatic hyperplasia): Qualifiers: Lower urinary tract symptom presence: unspecified whether lower urinary tract symptoms present Qualified Code(s): N40.0 - Benign prostatic hyperplasia without lower urinary tract symptoms Code(s): N40.0 - Benign prostatic hyperplasia without lower urinary tract symptoms Status: Acute Assessment and Plan: * Continue with tamsulosin * Trend urine output * stable (4) Leukocytosis: Qualifiers: Leukocytosis type: bandemia Qualified Code(s): D72.825 - Bandemia Code(s): D72.829 - Elevated white blood cell count, unspecified Status: Acute Assessment and Plan: * WBC continue to elevate * Upon admission 17.3, then 25.9, then 31.8, now 33.6 * No notable left sided shift * Get a CT of the abdomen and pelvis, since he is currently on treatment for diverticulitis * Wonder if this is C. Diff, could also be from the neupogen * No areas or signs of infections to note * Continue to trend * Claims to just of had a Neupogen injection * His baseline WBC is about 2 * Bands present at 50, down to 15 * 11/08/22 Spoke with oncologist at [facility] about patient's white count and he believes that this is due to Neupogen and that patient will be able to follow- up with us Oncology as an outpatient. DS: Summary Hospital Course Hospital Course: this is a 8-year-old patient with a past medical history of pancreatic cancer that is being seen at [facility] the presented to the ED on 10/05/2022 due to being diagnosed with PEs and DVTs. Patient had recent been on Eliquis for over 3 weeks but after this he developed a rash was placed on Xarelto. Patient then developed a GI bleed with diverticulitis. Patient's Xarelto was put on hold due to acute GI bleed and patient was started on ciprofloxacin and Flagyl. Patient had CTA chest performed at outside facility where he was found to have a PE. Repeat CT scan showed pulmonary emboli in the segmental branches of the right lower lobe, Pancreatic mass, hepatic metastatic disease, 1 cm left adrenal nodule and single mildly enlarged para-aortic lymph nodes suspicious for metastatic lesions. Patient was started on heparin drip in the ED Ej then subcu Lovenox. Heme Onc consulted. At the time patient's white count was found to be 25.9. Patient was eventually transition back to Xarel
--- NOTE | 2022-11-08 14:27 | PM.DS ---
DS: Admitting Diagnosis Discharge Date 11/08/22 Admitting Diagnosis PE DS: Discharge Diagnosis Discharge Diagnosis (1) Pulmonary emboli: Qualifiers: Acute cor pulmonale presence: without acute cor pulmonale Chronicity: acute Pulmonary embolism type: saddle Qualified Code(s): I26.92 - Saddle embolus of pulmonary artery without acute cor pulmonale Code(s): I26.99 - Other pulmonary embolism without acute cor pulmonale Status: Acute Assessment and Plan: CTA preformed at an outside hospital showed multiple PEs Referred to here from his oncologist Shruti given in the ED Xarelto can be started today per oncology No shortness of breath, chest pain, tachycardia oncology consulted (2) Pancreatic cancer: Qualifiers: Pancreatic malignancy location: unspecified Qualified Code(s): C25.9 - Malignant neoplasm of pancreas, unspecified Code(s): C25.9 - Malignant neoplasm of pancreas, unspecified Status: Acute Assessment and Plan: Treatment is at [facility]. Continue outpatient treatment (3) BPH (benign prostatic hyperplasia): Qualifiers: Lower urinary tract symptom presence: unspecified whether lower urinary tract symptoms present Qualified Code(s): N40.0 - Benign prostatic hyperplasia without lower urinary tract symptoms Code(s): N40.0 - Benign prostatic hyperplasia without lower urinary tract symptoms Status: Acute Assessment and Plan: Continue with tamsulosin Trend urine output stable (4) Leukocytosis: Qualifiers: Leukocytosis type: bandemia Qualified Code(s): D72.825 - Bandemia Code(s): D72.829 - Elevated white blood cell count, unspecified Status: Acute Assessment and Plan: WBC continue to elevate Upon admission 17.3, then 25.9, then 31.8, now 33.6 No notable left sided shift Get a CT of the abdomen and pelvis, since he is currently on treatment for diverticulitis Wonder if this is C. Diff, could also be from the neupogen No areas or signs of infections to note Continue to trend Claims to just of had a Neupogen injection His baseline WBC is about 2 Bands present at 50, down to 15 11/08/22 Spoke with oncologist at [facility] about patient's white count and he believes that this is due to Neupogen and that patient will be able to follow-up with us Oncology as an outpatient. DS: Summary Hospital Course Hospital Course: this is a 8-year-old patient with a past medical history of pancreatic cancer that is being seen at [facility] the presented to the ED on 10/05/2022 due to being diagnosed with PEs and DVTs. Patient had recent been on Eliquis for over 3 weeks but after this he developed a rash was placed on Xarelto. Patient then developed a GI bleed with diverticulitis. Patient's Xarelto was put on hold due to acute GI bleed and patient was started on ciprofloxacin and Flagyl. Patient had CTA chest performed at outside facility where he was found to have a PE. Repeat CT scan showed pulmonary emboli in the segmental branches of the right lower lobe, Pancreatic mass, hepatic metastatic disease, 1 cm left adrenal nodule and single mildly enlarged para-aortic lymph nodes suspicious for metastatic lesions. Patient was started on heparin drip in the ED Ej then subcu Lovenox. Heme Onc consulted. At the time patient's white count was found to be 25.9. Patient was eventually transition back to Xarelto. Patient's white count continued to rise each day he was hospitalized. After discussing with heme/ Onc is likely that chemotherapy and Neupogen injections caused patient's leukocytosis. At the time of discharge patient denied nausea, vomiting, abdominal pain, diarrhea, fever, body aches, chills and cough. Patient does have some shortness of breath with ambulation but this has improved over the course of his hospital stay. He over
[2022-11-08] MEDS: CENTRAL LINE FLUSH 10 ML IV PUSH (15:59)
[2022-11-08] MEDS: HEPARIN SODIUM LOCK FLUSH 500 UNITS/5 ML SYRINGE IV PUSH (15:59)
== END 2022-11-08 16:33 | disposition home or self-care (01) ==
LOC: ANHED 11-05 14:01 → ANH3MED 11-05 14:10
PROVIDERS: Emergency Medicine; General Practice; Internal Medicine Hematology & Oncology; Nurse Practitioner; Admitting Provider Internal Medicine; Emergency Provider Physician Assistant; PCP Physician Assistant; Visit Provider Internal Medicine
DX: I26.92 Saddle embolus of pulmonary artery without acute cor pulmonale (principal); I82.409 Acute embolism and thrombosis of unspecified deep veins of unspecified lower extremity; C25.9 Malignant neoplasm of pancreas, unspecified; C78.7 Secondary malignant neoplasm of liver and intrahepatic bile duct; N40.0 Benign prostatic hyperplasia without lower urinary tract symptoms; R07.9 Chest pain, unspecified; R06.02 Shortness of breath; D64.9 Anemia, unspecified; K80.20 Calculus of gallbladder without cholecystitis without obstruction; D72.825 Bandemia; E27.9 Disorder of adrenal gland, unspecified; E87.1 Hypo-osmolality and hyponatremia; Z95.828 Presence of other vascular implants and grafts; Z79.01 Long term (current) use of anticoagulants; Z79.630 Long term (current) use of alkylating agent; Z80.9 Family history of malignant neoplasm, unspecified; F19.90 Other psychoactive substance use, unspecified, uncomplicated; Z79.891 Long term (current) use of opiate analgesic; Z79.899 Other long term (current) drug therapy
CPT/HCPCS: 36415; 71045; 74177; 80053; 81003; 82274; 82948; 83605; 83690; 83735; 83880; 84439; 84443; 84480; 84484; 85025; 85055; 85520; 85610; 85652; 85730; 86140; 87040; 87045; 87177; 87209; 87269; 87272; 87427; 89055; 93005; 96365; 96366; 96372; 96375; 99285; A9270; G0378; J1644; J1650; J2405; Q9967